=== PATIENT | female | born 1935 | race Caucasian/White ===

== ENCOUNTER 2016-05-17 09:57 | Outpatient (CLI) | payer MEDICARE, OTHER | END 2016-05-17 09:58 | disposition home or self-care (01) | DX: Z12.31 Encounter for screening mammogram for malignant neoplasm of breast (principal); Z80.3 Family history of malignant neoplasm of breast ==

== ENCOUNTER 2016-05-17 09:59 | Outpatient (CLI) | payer MEDICARE, OTHER | END 2016-05-17 10:00 | disposition home or self-care (01) | DX: M89.9 Disorder of bone, unspecified (principal); Z78.0 Asymptomatic menopausal state ==

== ENCOUNTER 2016-05-19 10:15 | Outpatient (CLI) | END 2016-05-19 10:16 | disposition home or self-care (01) ==

== ENCOUNTER 2016-09-29 11:12 | Outpatient (CLI) | payer MEDICARE, OTHER | END 2016-09-29 11:13 | disposition home or self-care (01) | DX: R56.9 Unspecified convulsions (principal) ==

== ENCOUNTER 2017-02-02 11:15 | Outpatient (CLI) | payer MEDICARE, OTHER | END 2017-02-02 11:16 | disposition home or self-care (01) | LOC: LAB.WCP 11:15 | PROVIDERS: ATTEND Family Medicine | DX: N39.0 Urinary tract infection, site not specified (principal) | CPT/HCPCS: 87086 ==

== ENCOUNTER 2017-02-07 10:51 | Outpatient (CLI) | payer MEDICARE, OTHER ==
[2017-02-07 12:52] LABS: BASOPHILS # (AUTO) 0.1 10^3/uL (0.0-0.1); BASOPHILS % (AUTO) 0.5 %; EOSINOPHILS # (AUTO) 0.5 10^3/uL (0.0-0.7); EOSINOPHILS % (AUTO) 3.6 %; HCT - HEMATOCRIT 37.3 % (37.0-47.0); HGB - HEMOGLOBIN 12.2 g/dL (12.0-16.0); LYMPHOCYTES # (AUTO) 1.5 10^3/uL (1.5-3.5); LYMPHOCYTES % (AUTO) 11.9 %; MEAN CORPUSCULAR HEMOGLOBIN 28.1 pg (27.0-31.0); MEAN CORPUSCULAR HGB CONC 32.6 g/dL (32.0-36.0); MEAN CORPUSCULAR VOLUME 86.1 fL (81.0-99.0); MEAN PLATELET VOLUME 7.3 fL (7.9-10.8); MONOCYTES # (AUTO) 1.5 10^3/uL (0.0-1.0); MONOCYTES % (AUTO) 11.6 %; NEUTROPHILS # (AUTO) 9.2 10^3/uL (1.5-6.6); NEUTROPHILS % (AUTO) 72.4 %; RED BLOOD COUNT 4.33 10^6/uL (4.20-5.40); RED CELL DISTRIBUTION WIDTH 14.7 % (12.0-15.0); UNCORRECTED WHITE BLOOD COUNT 12.7 x10^3/uL; WHITE BLOOD COUNT 12.7 x10^3/uL (4.8-10.8)
[2017-02-07 13:10] LABS: CHOL/HDL RATIO 3.1 (<4.4); CHOLESTEROL 143 mg/dL; HDL CHOLESTEROL 46 mg/dL; LDL/HDL RATIO 1.7 (<4.4); TRIGLYCERIDES 95 mg/dL; VLDL CHOLESTEROL 19 mg/dL
== END 2017-02-07 10:52 | disposition home or self-care (01) ==
LOC: LAB.WCP 10:51
PROVIDERS: ATTEND Family Medicine
DX: E78.5 Hyperlipidemia, unspecified (principal); M79.1 Myalgia
CPT/HCPCS: 36415; 80061; 85025; 86140

== ENCOUNTER 2017-02-11 09:00 | Outpatient (CLI) | payer MEDICARE, OTHER | END 2017-02-11 09:01 | disposition critical access hospital (66) | LOC: EMS 09:00 | PROVIDERS: ATTEND Surgery | DX: R09.89 Other specified symptoms and signs involving the circulatory and respiratory systems (principal); R07.0 Pain in throat | CPT/HCPCS: A0425; A0429 ==

== ENCOUNTER 2017-02-11 09:19 | Emergency (ER) | payer MEDICARE, OTHER ==
--- NOTE | 2017-02-11 10:12 | XRAY Preliminary Report ---
Exam: XR Chest 2 View PA/LAT IMPRESSION: Emphysema and chronic interstitial lung disease. Mild superimposed edema not excluded. [facility] SITE ID: [id number]
--- NOTE | 2017-02-11 10:14 | XRAY Report ---
EXAM: CHEST RADIOGRAPHY EXAM DATE: 02/11/2017 09:48 AM. CLINICAL HISTORY: Chest Pain. COMPARISON: 02/11/2017. TECHNIQUE: 2 views. FINDINGS: Lungs/Pleura: The markings are again noted to be diffusely increased consistent with chronic fibrosis . Mild superimposed edema not excluded. No lola consolidative process or pleural effusion. Mediastinum: Stable heart and mediastinal contours. Other: Mild degenerative changes in the thoracic spine. IMPRESSION: Emphysema and chronic interstitial lung disease. Mild superimposed edema not excluded. [facility] Referring Provider Line: [phone] SITE ID: [id number]
[2017-02-11 10:19] LABS: BASOPHILS % (AUTO) 0.3 %; EOSINOPHILS % (AUTO) 0.3 %; HCT - HEMATOCRIT 35.2 % (37.0-47.0); HGB - HEMOGLOBIN 11.4 g/dL (12.0-16.0); LYMPHOCYTES # (AUTO) 0.7 10^3/uL (1.5-3.5); LYMPHOCYTES % (AUTO) 4.6 %; MEAN CORPUSCULAR HEMOGLOBIN 27.9 pg (27.0-31.0); MEAN CORPUSCULAR HGB CONC 32.5 g/dL (32.0-36.0); MEAN CORPUSCULAR VOLUME 85.8 fL (81.0-99.0); MEAN PLATELET VOLUME 6.7 fL (7.9-10.8); MONOCYTES # (AUTO) 1.6 10^3/uL (0.0-1.0); MONOCYTES % (AUTO) 9.6 %; NEUTROPHILS % (AUTO) 85.2 %; RED CELL DISTRIBUTION WIDTH 14.6 % (12.0-15.0); UNCORRECTED WHITE BLOOD COUNT 16.4 x10^3/uL; WHITE BLOOD COUNT 16.4 x10^3/uL (4.8-10.8)
[2017-02-11 10:33] LABS: BILIRUBIN,TOTAL 0.8 mg/dL (0.2-1.0); CALCIUM 8.8 mg/dL (8.5-10.3); CREATININE 0.8 mg/dL (0.4-1.0); POTASSIUM 4.1 mmol/L (3.5-5.0); TOTAL PROTEIN 6.5 g/dL (6.7-8.2)
[2017-02-11] MEDS ORDERED: DEXAMETHASONE 10 MG/ML VIAL PO STA (11:21)
[2017-02-11] MEDS ORDERED: IPRATROPIUM/ALBUTEROL 3 ML NEB INH STA (11:21)
[2017-02-11] MEDS ORDERED: CHERRY SYRUP 10 ML UDC PO ONE (12:04)
[2017-02-11] MEDS ORDERED: DEXAMETHASONE 10 MG/ML VIAL ONE (12:04)
[2017-02-11] MEDS ORDERED: SODIUM CHLORIDE 0.9% 1,000 ML IV ONE ×2 (13:00→13:23)
[2017-02-11] MEDS ORDERED: AZITHROMYCIN INJ 500 MG in SODIUM CHLORIDE 0.9% 250 ML IV STA (13:46)
--- NOTE | 2017-02-11 14:25 | ED Physician Documentation ---
History of Present Illness - Stated complaint Stated Complaint: CP - Chief complaint Chief Complaint: Cardiac - History obtained from History obtained from: Patient, EMS - History of Present Illness Timing: Last night Pain level max: 3 Pain level now: 3 Improved by: home pain medications helped Worsened by: movement, palpation - Additonal information Additional information: Patient is an 81-year-old female who presents to the emergency department with chest pain and neck pain since last night. This started when she was asleep, she thinks approximately 2 AM and has been consistent since that time. Became better when she took her morning pain medication. Did not seem to change with nitroglycerin and aspirin with EMS. No history of cardiac issues in the past. States that she does often get neck pain similar to this that resolves with her pain medication. She denies any fevers. Denies any coughing. States that she does use oxygen at home. Denies any recent illness. Review of Systems Ten Systems: 10 systems reviewed and negative Constitutional: denies: Fever, Chills Ears: denies: Ear pain Nose: denies: Rhinorrhea / runny nose, Congestion Throat: reports: Sore throat (mild) Cardiac: denies: Chest pain / pressure Respiratory: reports: Dyspnea (mild, normally on 2L home O2) GI: denies: Abdominal Pain, Nausea, Vomiting, Diarrhea : denies: Dysuria Skin: denies: Rash Musculoskeletal: denies: Neck pain, Back pain Neurologic: denies: Focal weakness, Numbness, Confused, Altered mental status, Headache, Head injury, LOC PD PAST MEDICAL HISTORY - Past Medical History Cardiovascular: None Respiratory: COPD, Pneumonia Neuro: None, Head injury Endocrine/Autoimmune: None GI: None 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 HEENT: Glaucoma Psych: Depression, Anxiety Musculoskeletal: Chronic back pain Derm: None - Past Surgical History Past Surgical History: Yes General: Appendectomy, Colonoscopy Ortho: Knee replacement, 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: Hysterectomy HEENT: Cataracts Derm: Skin cancer surgery - Present Medications Home Medications: Ambulatory Orders Medication Instructions Recorded Confirmed Esomeprazole [NexIUM] 40 mg PO DAILY 09/09/13 06/21/14 Levothyroxine Sodium [Synthroid] 100 mcg PO DAILY 09/09/13 06/21/14 Oxycodone HCl/Acetaminophen 1 each PO BID 09/09/13 06/21/14 [Oxycodone-Acetaminophen 5-325] Aspirin 81 mg ORAL DAILY 03/26/14 06/21/14 Budesonide/Formoterol Fumarate 2 puffs BID 06/21/14 06/21/14 [Symbicort 80-4.5 Mcg Inhaler] Cholecalciferol (Vitamin D3) 1 tab DAILY 06/21/14 06/21/14 [Vitamin D-3] Cyclobenzaprine [Flexeril] 10 mg PO TID PRN #20 tablet 06/21/14 DULoxetine [Cymbalta] 60 mg ORAL QPM 06/21/14 06/21/14 Latanoprost 0.005% Ophth Drops 1 drop QPM 06/21/14 06/21/14 [Xalatan Ophth Drops] Oxycodone HCl/Acetaminophen 1 each PO Q6H PRN #15 tablet 06/21/14 [Percocet 5-325 mg Tablet] Phenytoin [Dilantin] 200 ng ORAL QPM 06/21/14 06/21/14 Cephalexin [Keflex] 500 mg PO QID 7 Days capsule 01/14/16 Azithromycin [Zithromax] 250 mg PO DAILY #4 tablet 02/11/17 - Allergies Allergies/Adverse Reactions: Allergies Allergy/AdvReac Type Severity Reaction Status Date / Time oxaprozin [From Daypro] Allergy Mild Nausea Verified 06/21/14 14:09 tetracycline [Tetracycline] Allergy Mild Rash Verified 06/21/14 14:09 venom-honey bee Allergy Unknown Verified 06/21/14 14:09 [bee venom (honey bee)] bupropion HCl * AdvReac Unknown Verified 06/21/14 14:09 [From Wellbutrin] - Social History Does the pt smoke?: No Smoking Status: Never smoker Does the pt drink ETOH?: No Does the pt have substance abuse?: No - Immunizations Immunizations are current?: Yes - POLST Patient has POLST: Yes PD ED PE NORMAL - Vitals Vital signs reviewed: Yes - General General: Alert and oriented X 3, No acute distress, Well developed/nourished - HEENT HEENT: PERRL, Ears normal, Moist mucous membranes, Pharynx benign, Dentition benign - Neck Neck: Supple, no meningeal sign, No bony TTP, No adenopathy, No JVD, No bruit - Cardiac Cardiac: RRR, Strong equal pulses - Respiratory Respiratory: No respiratory distress, Other (mild rhonchi B) - Abdomen Abdomen: Soft, Non tender, Non distended - Back Back: No spinal TTP - Derm Derm: Warm and dry - Extremities Extremities: No deformity, Normal ROM s pain, No edema - Neuro Neuro: Alert and oriented X 3, 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, No motor deficit, No sensory deficit, Normal speech - Psych Psych: Normal mood, Normal affect Results - Vitals Vitals: Vital Signs - 24 hr 02/11/17 02/11/17 02/11/17 09:22 09:59 11:54 Temperature 37.1 C 36.5 C 36.8 C Heart Rate 90 77 70 Respiratory 16 16 18 Rate Blood Pressure 109/61 104/50 L 92/45 L O2 Saturation 100 95 95 02/11/17 02/11/17 02/11/17 11:56 12:54 13:37 Temperature Heart Rate 64 96 66 Respiratory 14 16 Rate Blood Pressure 88/50 L 94/49 L O2 Saturation 95 99 02/11/17 02/11/17 02/11/17 13:39 14:20 14:50 Temperature 36.9 C 36.6 C Heart Rate 65 61 70 Respiratory 15 16 Rate Blood Pressure 94/49 L 101/50 L 93/53 L O2 Saturation 97 97 98 02/11/17 02/11/17 02/11/17 15:14 15:26 15:40 Temperature Heart Rate 68 66 68 Respiratory Rate Blood Pressure 93/66 77/55 L 97/49 L O2 Saturation 02/11/17 02/11/17 16:26 16:33 Temperature 36.9 C Heart Rate 62 67 Respiratory 16 Rate Blood Pressure 89/61 L 99/58 L O2 Saturation 100 97 Oxygen O2 Source [With Activity] Room air O2 Source [Without Activity] Nasal cannula O2 Source Nasal cannula Oxygen Flow Rate 2 - EKG (time done) 0925 Rate: Rate (enter#) (75) Rhythm: NSR [place]: Normal Intervals: Normal CT QRS: Normal Ischemia: Normal ST segments - Labs Labs: Laboratory Tests 02/11/17 02/11/17 02/11/17 10:05 10:10 10:10 WBC 16.4 H RBC 4.10 L Hgb 11.4 L Hct 35.2 L MCV 85.8 MCH 27.9 MCHC 32.5 RDW 14.6 Plt Count 302 MPV 6.7 L Neut # 14.0 H Lymph # 0.7 L [place] # 1.6 H Eos # 0.0 Baso # 0.0 Absolute Nucleated RBC 0.00 Nucleated RBC % 0.0 Sodium 135 Potassium 4.1 Chloride 96 L Carbon Dioxide 29 Anion Gap 10.0 BUN 14 Creatinine 0.8 Estimated GFR (MDRD) 69 L Glucose 122 H Lactic Acid Calcium 8.8 Total Bilirubin 0.8 AST 23 ALT 13 Alkaline Phosphatase 61 Troponin I < 0.04 Total Protein 6.5 L Albumin 3.2 Globulin 3.3 Albumin/Globulin Ratio 1.0 Lipase 19 L 02/11/17 02/11/17 02/11/17 10:10 12:30 14:03 WBC RBC Hgb Hct MCV MCH MCHC RDW Plt Count MPV Neut # Lymph # [place] # Eos # Baso # Absolute Nucleated RBC Nucleated RBC % Sodium Potassium Chloride Carbon Dioxide Anion Gap BUN Creatinine Estimated GFR (MDRD) Glucose Lactic Acid 1.0 Calcium Total Bilirubin AST ALT Alkaline Phosphatase Troponin I < 0.04 < 0.04 Total Protein Albumin Globulin Albumin/Globulin Ratio Lipase - Rads (name of study) cxr Radiology: Prelim report reviewed, EMP read contemporaneously, See rad report ( Emphysema and chronic lung disease. mild edema not excluded) ctpa Radiology: Prelim report reviewed, EMP read contemporaneously, See rad report ( No evidence of acute pulmonary embolus. 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 New very small left pleural effusion. New groundglass opacities consistent with pneumonitis versus edema.) PD MEDICAL DECISION MAKING - ED course Complexity details: reviewed old records, reviewed results, re-evaluated patient , considered differential (No ST elevation [place], no aortic dissection, no PE, no tension pneumothorax, no aortic aneurysm), d/w patient ED course: Patient is an 81-year-old female who presents to the emergency department with atypical chest pain and neck pain. Symptoms resolved in the emergency department. She felt better after dexamethasone and breathing treatments. Started on azithromycin for possible pneumonitis. She became hypotensive in the emergency department, but fully asymptomatic. Unclear etiology of her hypotension. Improved with IV fluids. She states that she has not been eating or drinking much over the past week. She does state that she is normally hypotensive, systolic blood pressures in the low 100s. No fevers here. Normal lactate. No evidence of aortic dissection. Ambulating without difficulty. Does not feel lightheaded or dizzy. Will place on azithromycin for home and follow-up with her PCP closely. Patient is tolerating p.o. without difficulty in the emergency department. Patient counseled regarding signs and symptoms for which I believe and urgent re-evaluation would be necessary. Patient with good understanding of and agreement to plan and is comfortable going home at this time This document was made in part using voice recognition software. While efforts are made to proofread this document, sound alike and grammatical errors may occur. Departure - Departure Disposition: Home, Self Care Clinical Impression: Dehydration, Pneumonitis Chest pain Qualifiers: Chest pain type: unspecified Qualified Code(s): R07.9 - Chest pain, unspecified Hypotension Qualifiers: Hypotension type: unspecified hypotension type Qualified Code(s): I95.9 - Hypotension, unspecified Condition: Good Instructions: ED Chest Pain Atypical Unkn Cause Follow-Up: Garrison Patiño DO [Primary Care Provider] - Within 1 week Prescriptions: Azithromycin [Zithromax] 250 mg PO DAILY #4 tablet Comments: Take all anitbiotics until gone. Return if you worsen. Drink plenty of fluids at home. Discharge Date/Time: 02/11/17 17:29
[2017-02-11] MEDS ORDERED: IOPAMIDOL-300 100 ML VIAL ONE (15:34)
[2017-02-11] MEDS ORDERED: IOPAMIDOL-300 100 ML VIAL IVP ONE (15:58)
--- NOTE | 2017-02-11 16:34 | CT Preliminary Report ---
Exam: CT Chest Angio (PE) IMPRESSION: 1. Negative for acute pulmonary embolism. 2. Moderate cystic lung disease with features of emphysema and areas of parenchymal scarring. 3. New very small left pleural effusion. 4. New basilar dependent ground glass opacities. Differential including dependent mild interstitial e christie or pneumonitis. [facility] SITE ID: [id number]
--- NOTE | 2017-02-11 16:36 | CT Report ---
EXAM: CT ANGIOGRAM CHEST EXAM DATE: 02/11/2017 04:15 PM. CLINICAL HISTORY: Hypotension, chest pain. COMPARISON: 01/15/2015. TECHNIQUE: Routine helical imaging was performed through the chest in the pulmonary arterial phase. I V Contrast: 80 cc Isovue 300 IV. Reconstructions: Coronal 3-D MIP reconstructions.Sagittal and yoon l. In accordance with CT protocol optimization, one or more of the following dose reduction techniques w ere utilized for this exam: automated exposure control, adjustment of mA and/or KV based on patient s ize, or use of iterative reconstructive technique. FINDINGS: Pulmonary Arteries: Diagnostic quality: Adequate through the segmental arteries. Negative for pulmonary embolism. Lungs/Pleura: There is a very small left pleural effusion. There is moderate cystic lung disease with findings of centrilobular and paraseptal emphysema. There are subpleural linear opacities which are greatest in the right upper lobe consistent with scarring or fibrosis. There is lower lobe ground gla ss density. The trachea is patent and normal in caliber. Negative for pneumothorax. Mediastinum: There are borderline size mediastinal lymph nodes. Heart size within normal limits. Ther e is a moderate-sized hiatal hernia. Thoracic Aorta: There is atherosclerotic calcification without aneurysmal dissection. There are moder ate coronary artery calcifications. Upper Abdomen: Unremarkable. Other: None. IMPRESSION: 1. Negative for acute pulmonary embolism. 2. Moderate cystic lung disease with features of emphysema and areas of parenchymal scarring. 3. New very small left pleural effusion. 4. New basilar dependent ground glass opacities. Differential including dependent mild interstitial e christie or pneumonitis. [facility] Referring Provider Line: [phone] SITE ID: [id number]
[2017-02-11 19:15] VITALS: BP 99/58
== END 2017-02-11 17:29 | disposition home or self-care (01) ==
LOC: EDUNIT# → ED 09:19
DX: E86.0 Dehydration (principal); J18.9 Pneumonia, unspecified organism; R07.9 Chest pain, unspecified; I95.9 Hypotension, unspecified; Z96.659 Presence of unspecified artificial knee joint
CPT/HCPCS: 36415; 71020; 71275; 80053; 83605; 83690; 84484; 85025; 94664; 96361; 96365; 99284; 99285; A9270; J7620; Q9967

== ENCOUNTER 2017-03-07 11:21 | Outpatient (CLI) | payer MEDICARE, OTHER | END 2017-03-07 11:22 | disposition home or self-care (01) | LOC: DI 11:21 | PROVIDERS: ATTEND Family Medicine | DX: R01.1 Cardiac murmur, unspecified (principal); I51.7 Cardiomegaly; Z87.891 Personal history of nicotine dependence | CPT/HCPCS: 93306 ==

== ENCOUNTER 2017-04-14 10:50 | Outpatient (CLI) | payer MEDICARE, OTHER ==
--- NOTE | 2017-04-14 13:59 | CT Report ---
CT OF THE CHEST WITHOUT CONTRAST: 04/14/2017 CLINICAL INDICATION: Enlarged lymph nodes. COMPARISON: CT of chest of 02/11/2017, two view chest of 02/23/2017. TECHNIQUE: Axial CT images of the chest were obtained without intravenous contrast. FINDINGS: The heart and great vessels demonstrate atherosclerotic disease. There is no hilar or medi astinal lymphadenopathy identified. The lungs demonstrate extensive emphysema and peripheral fibrosis . No focal consolidation, effusion, or pneumothorax is present. Limited evaluation of upper abdominal structures demonstrates cholelithiasis. The adrenal glands appear unremarkable. A moderate hiatal he rnia is present. The osseous structures demonstrate degenerative changes. IMPRESSION: EMPHYSEMA AND FIBROSIS. NO EVIDENCE OF ADENOPATHY. MODERATE HIATAL HERNIA. In accordance with CT protocol optimization, one or more of the following dose reduction techniques w ere utilized for this exam: automated exposure control, adjustment of mA and/or KV based on patient size, or use of iterative reconstructive technique. JOB #: [id number] EXT JOB #:[id number]
== END 2017-04-14 10:51 | disposition home or self-care (01) ==
LOC: DI 10:50
PROVIDERS: ATTEND Internal Medicine Critical Care Medicine
DX: J43.9 Emphysema, unspecified (principal); J84.10 Pulmonary fibrosis, unspecified; J44.9 Chronic obstructive pulmonary disease, unspecified
CPT/HCPCS: 71250

== ENCOUNTER 2017-08-01 08:00 | Outpatient (CLI) | payer MEDICARE, OTHER ==
[2017-08-01 19:19] LABS: BASOPHILS # (AUTO) 0.1 10^3/uL (0.0-0.1); BASOPHILS % (AUTO) 0.7 %; EOSINOPHILS # (AUTO) 0.6 10^3/uL (0.0-0.7); EOSINOPHILS % (AUTO) 6.6 %; HGB - HEMOGLOBIN 12.1 g/dL (12.0-16.0); MEAN CORPUSCULAR HGB CONC 32.7 g/dL (32.0-36.0); MEAN CORPUSCULAR VOLUME 85.8 fL (81.0-99.0); MEAN PLATELET VOLUME 8.1 fL (7.9-10.8); MONOCYTES # (AUTO) 0.9 10^3/uL (0.0-1.0); MONOCYTES % (AUTO) 10.4 %; NEUTROPHILS # (AUTO) 5.1 10^3/uL (1.5-6.6); NEUTROPHILS % (AUTO) 59.3 %; PLT - PLATELET COUNT 307 10^3/uL (130-450); RED BLOOD COUNT 4.33 10^6/uL (4.20-5.40); RED CELL DISTRIBUTION WIDTH 16.1 % (12.0-15.0); WHITE BLOOD COUNT 8.6 x10^3/uL (4.8-10.8)
[2017-08-01 19:36] LABS: ALBUMIN/GLOBULIN RATIO 1.4 (1.0-2.2); ALKALINE PHOSPHATASE 71 IU/L (42-121); ALT ALANINE AMINOTRANSFERASE 18 IU/L (10-60); AST ASPARTATE AMINOTRANSFERASE 30 IU/L (10-42); BILIRUBIN,TOTAL 0.5 mg/dL (0.2-1.0); BUN - BLOOD UREA NITROGEN 20 mg/dL (6-20); CALCIUM 9.5 mg/dL (8.5-10.3); CARBON DIOXIDE - CO2 29 mmol/L (21-32); CHLORIDE 99 mmol/L (101-111); CHOL/HDL RATIO 2.7 (<4.4); CHOLESTEROL 174 mg/dL; CREATININE 0.8 mg/dL (0.4-1.0); GFR - MDRD 69 (>89); GLUCOSE 88 mg/dL (70-100); HDL CHOLESTEROL 65 mg/dL; LDL CHOLESTEROL,CALCULATED 94 mg/dL; LDL/HDL RATIO 1.4 (<4.4); SODIUM 137 mmol/L (135-145); TOTAL PROTEIN 6.9 g/dL (6.7-8.2); VLDL CHOLESTEROL 15 mg/dL
== END 2017-08-01 08:01 | disposition home or self-care (01) ==
LOC: LAB.WCP 08:00
PROVIDERS: ATTEND Family Medicine
DX: E78.5 Hyperlipidemia, unspecified (principal); D64.9 Anemia, unspecified; R56.1 Post traumatic seizures
CPT/HCPCS: 36415; 80053; 80061; 83721; 84443; 85025

== ENCOUNTER 2018-01-16 13:00 | Outpatient (CLI) | payer MEDICARE, OTHER ==
[2018-01-16 19:02] LABS: BASOPHILS % (AUTO) 0.2 %; EOSINOPHILS # (AUTO) 0.3 10^3/uL (0.0-0.7); HGB - HEMOGLOBIN 11.2 g/dL (12.0-16.0); LYMPHOCYTES # (AUTO) 1.2 10^3/uL (1.5-3.5); LYMPHOCYTES % (AUTO) 7.5 %; MEAN CORPUSCULAR HEMOGLOBIN 26.9 pg (27.0-31.0); MEAN CORPUSCULAR HGB CONC 32.3 g/dL (32.0-36.0); MEAN CORPUSCULAR VOLUME 83.2 fL (81.0-99.0); MEAN PLATELET VOLUME 6.4 fL (7.9-10.8); MONOCYTES # (AUTO) 1.2 10^3/uL (0.0-1.0); MONOCYTES % (AUTO) 7.8 %; NEUTROPHILS # (AUTO) 12.7 10^3/uL (1.5-6.6); NEUTROPHILS % (AUTO) 82.5 %; PLT - PLATELET COUNT 513 10^3/uL (130-450); RED BLOOD COUNT 4.15 10^6/uL (4.20-5.40); RED CELL DISTRIBUTION WIDTH 16.1 % (12.0-15.0); WHITE BLOOD COUNT 15.5 x10^3/uL (4.8-10.8)
[2018-01-16 19:23] LABS: ALBUMIN 3.3 g/dL (3.2-5.5); ALBUMIN/GLOBULIN RATIO 0.8 (1.0-2.2); BILIRUBIN,TOTAL 0.7 mg/dL (0.2-1.0); CALCIUM 9.1 mg/dL (8.5-10.3); CREATININE 2.4 mg/dL (0.4-1.0); TOTAL PROTEIN 7.3 g/dL (6.7-8.2)
== END 2018-01-16 13:01 | disposition home or self-care (01) ==
LOC: LAB.WCP 13:00
PROVIDERS: ATTEND Family Medicine
DX: J44.9 Chronic obstructive pulmonary disease, unspecified (principal); R06.02 Shortness of breath; N39.0 Urinary tract infection, site not specified
CPT/HCPCS: 36415; 80053; 83880; 85025

== ENCOUNTER 2018-01-17 10:44 | Inpatient (IN) | payer MEDICARE, OTHER ==
[2018-01-17 12:25] LABS: BILIRUBIN,URINE NEGATIVE (NEGATIVE); GLUCOSE, URINE (UA) NEGATIVE (NEGATIVE); KETONES,URINE (UA) NEGATIVE (NEGATIVE); LEUKOCYTE ESTERASE, URINE NEGATIVE (NEGATIVE); NITRITE,URINE NEGATIVE (NEGATIVE); OCCULT BLOOD,URINE LARGE (NEGATIVE); PH,URINE 6.5 PH (5.0-7.5); PROTEIN,URINE 30 mg/dL (NEGATIVE); UROBILINOGEN,URINE 0.2 (NORMAL) E.U./dL (NORMAL)
[2018-01-17 12:27] LABS: CLARITY,URINE CLEAR (CLEAR)
[2018-01-17 12:37] LABS: BASOPHILS # (AUTO) 0.1 10^3/uL (0.0-0.1); BASOPHILS % (AUTO) 0.3 %; EOSINOPHILS # (AUTO) 0.1 10^3/uL (0.0-0.7); EOSINOPHILS % (AUTO) 0.5 %; HGB - HEMOGLOBIN 10.4 g/dL (12.0-16.0); LYMPHOCYTES # (AUTO) 1.7 10^3/uL (1.5-3.5); LYMPHOCYTES % (AUTO) 9.5 %; MEAN CORPUSCULAR HEMOGLOBIN 26.9 pg (27.0-31.0); MEAN CORPUSCULAR HGB CONC 32.7 g/dL (32.0-36.0); MEAN CORPUSCULAR VOLUME 82.2 fL (81.0-99.0); MEAN PLATELET VOLUME 6.3 fL (7.9-10.8); MONOCYTES # (AUTO) 1.7 10^3/uL (0.0-1.0); MONOCYTES % (AUTO) 9.1 %; NEUTROPHILS # (AUTO) 14.8 10^3/uL (1.5-6.6); NEUTROPHILS % (AUTO) 80.6 %; PLT - PLATELET COUNT 522 10^3/uL (130-450); RED BLOOD COUNT 3.85 10^6/uL (4.20-5.40); RED CELL DISTRIBUTION WIDTH 15.9 % (12.0-15.0); WHITE BLOOD COUNT 18.4 x10^3/uL (4.8-10.8)
[2018-01-17] MEDS ORDERED: SODIUM CHLORIDE 0.9% 1,000 ML IV ONE ×2 (12:37)
--- NOTE | 2018-01-17 12:41 | ED Physician Documentation ---
History of Present Illness - Stated complaint Stated Complaint: WEAKNESS - Chief complaint Chief Complaint: General - History obtained from History obtained from: Patient - History of Present Illness Timing: Unknown Pain level max: 0 Pain level now: 0 Improved by: nothing Worsened by: nothing - Additonal information Additional information: Patient is an 82-year-old female who tells me that she does not know why she is here that her doctor sent her here because she thinks that 1 of her tests was low. Patient has no current complaints. She states that her doctor gave her "a shot of prednisone and an antibiotic". 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 HEENT: Glaucoma Psych: Depression, Anxiety Musculoskeletal: Chronic back pain Derm: None - Past Surgical History Past Surgical History: Yes General: Appendectomy, Colonoscopy Ortho: Knee replacement, 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 HEENT: Cataracts Derm: Skin cancer surgery - Present Medications Home Medications: Ambulatory Orders Medication Instructions Recorded Confirmed Levothyroxine Sodium [Synthroid] 100 mcg PO DAILY 09/09/13 01/17/18 Oxycodone HCl/Acetaminophen 1 each PO TID PRN 09/09/13 01/17/18 [Oxycodone-Acetaminophen 5-325] Aspirin 81 mg PO DAILY 03/26/14 01/17/18 Cholecalciferol (Vitamin D3) 1,000 mg PO DAILY 06/21/14 01/17/18 [Vitamin D-3] DULoxetine [Cymbalta] 60 mg ORAL QPM 06/21/14 01/17/18 Latanoprost 0.005% Ophth Drops 1 drop RIGHTEYE QPM 06/21/14 01/17/18 [Xalatan Ophth Drops] Albuterol Sulfate [Proair Hfa 2 puffs INH Q4H PRN 01/17/18 01/17/18 Inhaler] Atorvastatin Calcium 40 mg PO DAILY 01/17/18 01/17/18 Bisacodyl [Dulcolax] 10 mg PO DAILY PRN 01/17/18 01/17/18 Calcium Carbonate/Vitamin D3 1 tab PO BID 01/17/18 01/17/18 [Calcium 600-Vit D3 400 Tablet] Cyanocobalamin (Vitamin B-12) 1,000 mcg SL DAILY 01/17/18 01/17/18 [Vitamin B-12 (1000 mcg sublingual)] Fluticasone 110 Mcg [Flovent] 1 puffs IH BID 01/17/18 01/17/18 Fluticasone/Salmeterol [Advair 1 puffs IH BID 01/17/18 01/17/18 250-50 Diskus] L.acid/L.casei/B.bif/B.filemon/Fos 1 cap PO DAILY 01/17/18 01/17/18 [Probiotic Blend Capsule] Magnesium Oxide [Magnesium] 400 mg PO QPM 01/17/18 01/17/18 Melatonin 5 mg PO DAILY PRN 01/17/18 01/17/18 Multivitamin [Theragran] 1 tab PO DAILY 01/17/18 01/17/18 Omeprazole [Omeprazole] 20 mg PO BID 01/17/18 01/17/18 Oxybutynin Chloride 5 mg PO DAILY 01/17/18 01/17/18 Timolol 0.5% Ophth Drops [Timoptic 1 drops RIGHTEYE BID 01/17/18 01/17/18 0.5% Ophth Drops] Ubidecarenone [Co Q-10] 100 mg PO DAILY 01/17/18 01/17/18 lamoTRIgine [LaMICtal] 100 mg PO BID 01/17/18 01/17/18 - Allergies Allergies/Adverse Reactions: Allergies Allergy/AdvReac Type Severity Reaction Status Date / Time oxaprozin [From Daypro] Allergy Mild Nausea Verified 01/17/18 10:53 tetracycline [Tetracycline] Allergy Mild Rash Verified 01/17/18 10:53 venom-honey bee Allergy Unknown Verified 01/17/18 10:53 [bee venom (honey bee)] bupropion HCl * AdvReac Unknown Verified 01/17/18 10:53 [From Wellbutrin] - Social History Does the pt smoke?: No Smoking Status: Never smoker Does the pt drink ETOH?: No Does the pt have substance abuse?: No - Immunizations Immunizations are current?: Yes - POLST Patient has POLST: Yes PD ED PE NORMAL - Vitals Vital signs reviewed: Yes - General General: Alert and oriented X 3, No acute distress - HEENT HEENT: Moist mucous membranes - Neck Neck: Supple, no meningeal sign - Cardiac Cardiac: RRR, Strong equal pulses - Respiratory Respiratory: Clear bilaterally, Other (wheezing B) - Abdomen Abdomen: Soft, Non tender, Non distended - Back Back: No CVA TTP, No spinal TTP - Derm Derm: Warm and dry, No rash - Extremities Extremities: No edema - Neuro Neuro: Alert and oriented X 3 - Psych Psych: Normal mood, Normal affect Results - Vitals Vitals: Vital Signs - 24 hr 01/17/18 01/17/18 10:47 13:07 Temperature 36.4 C L Heart Rate 75 89 Respiratory 22 20 Rate Blood Pressure 122/59 L O2 Saturation 93 Oxygen O2 Source [With Activity] Room air O2 Source [Without Activity] Nasal cannula O2 Source Room air - Labs Labs: Laboratory Tests 01/17/18 01/17/18 01/17/18 11:55 12:26 12:26 WBC 18.4 H RBC 3.85 L Hgb 10.4 L Hct 31.6 L MCV 82.2 MCH 26.9 L MCHC 32.7 RDW 15.9 H Plt Count 522 H MPV 6.3 L Neut # (Auto) 14.8 H Lymph # (Auto) 1.7 [place] # (Auto) 1.7 H Eos # (Auto) 0.1 Baso # (Auto) 0.1 Absolute Nucleated RBC 0.00 Nucleated RBC % 0.0 Manual Slide Review Indicated RBC Morph Micro Appear 2+ ANISOCYTOSIS Sodium 131 L Potassium 3.7 Chloride 90 L Carbon Dioxide 32 Anion Gap 9.0 BUN 49 H Creatinine 2.2 H Estimated GFR (MDRD) 21 L Glucose 101 H Calcium 8.9 Total Bilirubin 0.5 AST 25 ALT 14 Alkaline Phosphatase 76 Total Protein 7.4 Albumin 3.4 Globulin 4.0 Albumin/Globulin Ratio 0.9 L Lipase 30 Urine Color YELLOW Urine Clarity CLEAR Urine pH 6.5 Ur Specific [place] <=1.005 Urine Protein 30 H Urine Glucose (UA) NEGATIVE Urine Ketones NEGATIVE Urine Occult Blood LARGE H Urine Nitrite NEGATIVE Urine Bilirubin NEGATIVE Urine Urobilinogen 0.2 (NORMAL) Ur Leukocyte Esterase NEGATIVE Urine RBC 0-5 Urine WBC 4-5 Ur Squamous Epith Cells RARE Squamous Urine Bacteria Rare Ur Microscopic Review INDICATED Urine Culture Comments NOT INDICATED PD MEDICAL DECISION MAKING - ED course Complexity details: reviewed old records, reviewed results, re-evaluated patient , considered differential, d/w patient, d/w PMD ED course: chest xray this am shows superimposed pneumonitis in the [place]. Patient is an 82-year-old female presents to the emergency department after being sent in by her primary care provider. Records were obtained from her primary care provider and shows that she received Solu-Medrol as well as Rocephin yesterday for possible COPD flare and pneumonia. Laboratory testing revealed acute renal failure and dehydration. Patient was also hypoxic in the office yesterday, mid to low 80s on her oxygen saturations and improved with supplemental oxygen. Patient was still feeling very weak today. Was given Rocephin and azithromycin as well as Solu-Medrol again. Also given IV fluids. Discussed the case with the hospitalist will admit her for COPD flare, acute renal failure likely secondary to dehydration. This document was made in part using voice recognition software. While efforts are made to proofread this document, sound alike and grammatical errors may occur. - Sepsis Event Vital Signs: Vital Signs - 24 hr 01/17/18 01/17/18 10:47 13:07 Temperature 36.4 C L Heart Rate 75 89 Respiratory 22 20 Rate Blood Pressure 122/59 L O2 Saturation 93 Oxygen O2 Source [With Activity] Room air O2 Source [Without Activity] Nasal cannula O2 Source Room air Departure - Departure Disposition: [facility] DC/Xfer Clinical Impression: Pneumonia, COPD exacerbation Acute renal failure Qualifiers: Acute renal failure type: unspecified Qualified Code(s): N17.9 - Acute kidney failure, unspecified Condition: Stable
[2018-01-17 12:47] LABS: BACTERIA,URINE Rare /HPF (None Seen); RBC,URINE 0-5 /HPF (0-5); SQUAMOUS EPITHELIAL CELL,UR RARE Squamous (<= Few)
[2018-01-17 12:48] LABS: ALBUMIN 3.4 g/dL (3.2-5.5); ALBUMIN/GLOBULIN RATIO 0.9 (1.0-2.2); BILIRUBIN,TOTAL 0.5 mg/dL (0.2-1.0); CREATININE 2.2 mg/dL (0.4-1.0); TOTAL PROTEIN 7.4 g/dL (6.7-8.2)
[2018-01-17] MEDS ORDERED: IPRATROPIUM/ALBUTEROL 3 ML NEB INH STA (12:49)
[2018-01-17] MEDS ORDERED: AZITHROMYCIN INJ 500 MG in SODIUM CHLORIDE 0.9% 250 ML IV STA (12:52)
[2018-01-17] MEDS ORDERED: cefTRIAXone 1 GM VIAL IVP STA (12:52)
[2018-01-17 12:56] LABS: RBC MORPHOLOGY (MULTIPLE) 2+ ANISOCYTOSIS (NORMAL)
[2018-01-17 12:58] LABS: CALCIUM 8.9 mg/dL (8.5-10.3)
[2018-01-17] MEDS ORDERED: methylPREDNISolone SUCCINATE 125 MG/2 ML VIAL IVP STA (13:30)
[2018-01-17] MEDS ORDERED: ONDANSETRON 4 MG/2 ML VIAL IVP PRN (13:30)
[2018-01-17] MEDS ORDERED: ONDANSETRON ODT 4 MG TABLET TL PRN (13:30)
[2018-01-17] MEDS ORDERED: BISACODYL 5 MG TABLET PO PRN (13:34)
[2018-01-17] MEDS ORDERED: ALBUTEROL NEB 2.5 MG/3 ML INH SCH (14:00)
--- NOTE | 2018-01-17 14:40 | HISTORY & PHYSICAL EXAMINATION ---
Chief Complaint - Chief Complaint Chief Complaint: difficult breathing History of Present Illness - History Obtained From History obtained from: pt - History of Present Illness HPI Comment/Other: Ms. Huynh is 82-year-old female with a PMH significance for recurrent pneumonia, longstanding COPD, glaucoma, depression/anxiety, chronic back pain, hypothyroidism who present ER for complaint of difficult breath. Pt report his doctor asked her present ER because of "a abnormal number". Pt report she became more and more difficult to breath otherwise she feels ok. She state she become more fatigue and shortness of breath when she walk a few step with her walkers. She report she had multiple times of pneumonia in the past. She used to be cigarette smoker for quit long time. She denies fever, chill, chest pain , headache, abdominal pain. 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 she has one adopted daughter living at [place] Living arrangement: At home Living Situation: Alone Social History Notes: pt report she stopped cigarette smoking 5 yrs ago. She denies alcohol and drug issue. - Substance History Use: Uses substance without health or social issues: Tobacco - POLST POLST Status: DNR Meds/Allgy - Home Medications Home Medications: Ambulatory Orders Medication Instructions Recorded Confirmed Levothyroxine Sodium [Synthroid] 100 mcg PO DAILY 09/09/13 01/17/18 Oxycodone HCl/Acetaminophen 1 each PO TID PRN 09/09/13 01/17/18 [Oxycodone-Acetaminophen 5-325] Aspirin 81 mg PO DAILY 03/26/14 01/17/18 Cholecalciferol (Vitamin D3) 1,000 mg PO DAILY 06/21/14 01/17/18 [Vitamin D-3] DULoxetine [Cymbalta] 60 mg ORAL QPM 06/21/14 01/17/18 Latanoprost 0.005% Ophth Drops 1 drop RIGHTEYE QPM 06/21/14 01/17/18 [Xalatan Ophth Drops] Albuterol Sulfate [Proair Hfa 2 puffs INH Q4H PRN 01/17/18 01/17/18 Inhaler] Atorvastatin Calcium 40 mg PO DAILY 01/17/18 01/17/18 Bisacodyl [Dulcolax] 10 mg PO DAILY PRN 01/17/18 01/17/18 Calcium Carbonate/Vitamin D3 1 tab PO BID 01/17/18 01/17/18 [Calcium 600-Vit D3 400 Tablet] Cyanocobalamin (Vitamin B-12) 1,000 mcg SL DAILY 01/17/18 01/17/18 [Vitamin B-12 (1000 mcg sublingual)] Fluticasone 110 Mcg [Flovent] 1 puffs IH BID 01/17/18 01/17/18 Fluticasone/Salmeterol [Advair 1 puffs IH BID 01/17/18 01/17/18 250-50 Diskus] L.acid/L.casei/B.bif/B.filemon/Fos 1 cap PO DAILY 01/17/18 01/17/18 [Probiotic Blend Capsule] Magnesium Oxide [Magnesium] 400 mg PO QPM 01/17/18 01/17/18 Melatonin 5 mg PO DAILY PRN 01/17/18 01/17/18 Multivitamin [Theragran] 1 tab PO DAILY 01/17/18 01/17/18 Omeprazole [Omeprazole] 20 mg PO BID 01/17/18 01/17/18 Oxybutynin Chloride 5 mg PO DAILY 01/17/18 01/17/18 Timolol 0.5% Ophth Drops [Timoptic 1 drops RIGHTEYE BID 01/17/18 01/17/18 0.5% Ophth Drops] Ubidecarenone [Co Q-10] 100 mg PO DAILY 01/17/18 01/17/18 lamoTRIgine [LaMICtal] 100 mg PO BID 01/17/18 01/17/18 - Allergies Allergies/Adverse Reactions: Allergies Allergy/AdvReac Type Severity Reaction Status Date / Time oxaprozin [From Daypro] Allergy Mild Nausea Verified 01/17/18 10:53 tetracycline [Tetracycline] Allergy Mild Rash Verified 01/17/18 10:53 venom-honey bee Allergy Unknown Verified 01/17/18 10:53 [bee venom (honey bee)] bupropion HCl * AdvReac Unknown Verified 01/17/18 10:53 [From Wellbutrin] Review of Systems - Constitutional Constitutional: reports: Fatigue. denies: Fever, Chills, Malaise, Weakness, Poor appetite, Diaphoresis, Night sweats - Eyes Eyes: denies: Pain, Irritation, Amaurosis, Blurred vision, Spots in vision, Field loss, Vision loss, Dipolpia - Ears, Nose & Throat Ears, Nose & Throat: denies: Ear pain, Hearing loss, Hearing aids, Tinnitus, Vertigo, Nasal pain, Nasal discharge, Nosebleeds, Nasal obstruction, Nasal congestion, Postnasal drainage, Dentures, Sore throat, Hoarseness, Mouth lesions , Bleeding gums - Cardiovascular Cariovascular: denies: Irregular heart rate, Palpitations, Chest pain, Edema, Lightheadedness, Syncope, Exertional dyspnea, Decr. exercise tolerance - Respiratory Respiratory: reports: Cough, Wheezing, SOB with exertion. denies: Sputum production, Snoring, Hemoptysis, Orthopnea, SOB at rest, Apnea, Stridor - Gastrointestinal Gastrointestinal: denies: Abdominal pain, Abdominal distention, Constipation, Diarrhea, Change in bowel habits, Rectal bleeding, Black stools, Bloody stools, Nausea, Vomiting, Johnnie blood emesis, Coffee grounds emesis, Reflux/heartburn - Genitourinary Genitourinary: denies: Dysuria, Frequency, Urgency, Hematuria, Incontinence, Flank pain, Nocturia, Urethral discharge - Musculoskeletal Musculoskeletal: denies: Muscle pain, Back pain, Muscle aches, Stiffness, Limited range of motion, Muscle weakness, Gout, Joint pain - Integumentary Integumentary: denies: Rash, Pruritis, Lesions, Dryness, Lumps, Acne, Pigment changes, Nail changes - Neurological Neurological: denies: General weakness, Focal weakness, Headache, Dizziness, Numbness, Memory problems, Pre-existing deficit, Abnormal gait, Seizures, Incoordination, Slurred speech - Psychiatric Psychiatric: denies: Depression, Anxiety, Suicidal, Delusions, Hallucinations, Homicidal - Endocrine Endocrine: denies: Polyuria, Polydypsia, Polyphagia, Intolerance to cold - Hematologic/Lymphatic Hematologic/Lymphatic: denies: Anemia, Bruising, Petechiae, Blood clots, Lymphadenopathy, Bleeding tendencies Exam - Vital Signs Vital Signs: Vital Signs x48h Temp Pulse Resp BP Pulse Ox 01/17/18 13:07 89 20 01/17/18 10:47 36.4 C L 75 22 122/59 L 93 - Physical Exam General Appearance: positive: No acute distress, Alert. negative: Lethargic Eyes Bilateral: positive: Normal inspection, PERRL, No lid inflammation, Conjunctivae nml ENT: positive: ENT inspection nml, Pharynx nml, No signs of dehydration. negative: Purulent nasal drainage, Pharyngeal erythema, Oral lesions Neck: positive: Nml inspection, Thyroid nml, No JVD, Trachea midline. negative : Thyromegaly, Lymphadenopathy (R), Lymphadenopathy (L), Stiff neck, Swelling/ bruising, Tracheal deviation Respiratory: positive: Chest non-tender, No respiratory distress, Rhonchi. negative: Wheezes, Rales Cardiovascular: positive: Regular rate & rhythm, Systolic murmur. negative: Irregularly irregular, Extrasystoles, Tachycardia, Bradycardia, JVD present, Diastolic murmur Peripheral Pulses: positive: 2+ Abdomen: positive: Non-tender, No organomegaly, Nml bowel sounds, No distention. negative: Tenderness, Guarding, Rebound Back: positive: Nml inspection. negative: CVA tenderness (R), CVA tenderness (L ) Skin: positive: Color nml, No rash, Warm, Dry. negative: Cyanosis, Diaphoresis , Pallor Extremities: positive: Non-tender, Full ROM, Nml appearance. negative: Calf tenderness, Joint swelling, Bang's sign/cords Neurologic/Psychiatric: positive: Oriented x3, Motor nml, Sensation nml, Mood/ affect nml. negative: Weakness, Sensory loss, Facial droop, Slurred/abnml speech, Depressed mood/affect Conclusion/Plan - Problem List (1) COPD exacerbation Conclusion/Plan: Hx of longstanding COPD, hypoxia, SOB solu-medro Duoneb O2 as needed, RT treatment vital monitor (2) Pneumonia Conclusion/Plan: significant elevated WBC 18, CXR indicate infection or inflammation Rocephin and Azith IVF of NS daily lab monitor (3) Dehydration Conclusion/Plan: pt report she feel dehydration, pt also had significant elevated creatinine Hydration with IVF of NS, precaution of fluid overload. daily lab monitor (4) Hyponatremia Conclusion/Plan: Na is 131, hypovolum and hyponatremia IVF of NS daily lab monitor (5) Hypothyroidism Conclusion/Plan: stable, resume home meds check TSH (6) DVT prophylaxis Conclusion/Plan: SCD and LOvenox (7) Do not intubate, cardiopulmonary resuscitation (CPR)-only code status Conclusion/Plan: pt request DNR - Lab Results Fish Bones: 01/18/18 05:22 01/18/18 05:22 Core Measures - Anticipated LOS I expect patient to be DC'd or transferred within 96 hours.: Yes - DVT/VTE - Prophylaxis VTE/DVT Device ordered at admit?: Yes VTE/DVT Prophylaxis med ordered at admit?: Yes
[2018-01-17] MEDS: methylPREDNISolone SUCCINATE 125 MG/2 ML VIAL IVP SCH ×2 (15:45→20:59)
[2018-01-17] MEDS: PANTOPRAZOLE 40 MG TABLET PO SCH (15:46)
[2018-01-17] MEDS ORDERED: ALBUTEROL NEB 2.5 MG/3 ML INH PRN (16:00)
[2018-01-17] MEDS: IPRATROPIUM/ALBUTEROL 3 ML NEB INH SCH ×2 (16:03→19:54)
[2018-01-17] MEDS: SACCHAROMYCES BOULARDII 250 MG CAPSULE PO SCH (17:11)
[2018-01-17] MEDS: SODIUM CHLORIDE 0.9% 1,000 ML IV SCH (17:12)
[2018-01-17] MEDS: SODIUM CHLORIDE FLUSH 0.9% 10 ML SYRINGE IVP SCH (17:12)
[2018-01-17] MEDS: lamoTRIgine 100 MG TABLET PO SCH (20:59)
[2018-01-17] MEDS: MAGNESIUM OXIDE 400 MG TABLET PO SCH (20:59)
[2018-01-17] MEDS: SODIUM CHLORIDE FLUSH 0.9% 10 ML SYRINGE IVP PRN (20:59)
[2018-01-17] MEDS: DULoxetine 30 MG CAPSULE PO SCH (20:59)
[2018-01-17] MEDS: LATANOPROST 0.005% OPHTH DROPS RIGHTEYE SCH (20:59)
[2018-01-17] MEDS: TIMOLOL 0.5% OPHTH DROPS RIGHTEYE SCH (21:00)
[2018-01-17] MEDS ORDERED: FLUTICASONE HFA 110 MCG INHALER INH SCH (21:00)
[2018-01-17] MEDS: oxyCODONE 5 MG TABLET PO PRN (21:03)
[2018-01-17] MEDS: ACETAMINOPHEN 325 MG TABLET PO PRN (21:04)
[2018-01-18] MEDS: SODIUM CHLORIDE 0.9% 1,000 ML IV SCH ×2 (02:53→14:03)
[2018-01-18] MEDS: SODIUM CHLORIDE FLUSH 0.9% 10 ML SYRINGE IVP SCH ×3 (02:54→16:47)
[2018-01-18 06:18] LABS: BASOPHILS % (AUTO) 0.1 %; HGB - HEMOGLOBIN 9.4 g/dL (12.0-16.0); LYMPHOCYTES # (AUTO) 0.7 10^3/uL (1.5-3.5); LYMPHOCYTES % (AUTO) 7.2 %; MEAN CORPUSCULAR HEMOGLOBIN 27.1 pg (27.0-31.0); MEAN CORPUSCULAR HGB CONC 32.7 g/dL (32.0-36.0); MEAN CORPUSCULAR VOLUME 82.9 fL (81.0-99.0); MEAN PLATELET VOLUME 6.3 fL (7.9-10.8); MONOCYTES # (AUTO) 0.3 10^3/uL (0.0-1.0); MONOCYTES % (AUTO) 2.7 %; NEUTROPHILS # (AUTO) 8.9 10^3/uL (1.5-6.6); PLT - PLATELET COUNT 416 10^3/uL (130-450); RED BLOOD COUNT 3.46 10^6/uL (4.20-5.40); RED CELL DISTRIBUTION WIDTH 16.1 % (12.0-15.0); WHITE BLOOD COUNT 9.8 x10^3/uL (4.8-10.8)
[2018-01-18 06:26] LABS: CALCIUM 8.3 mg/dL (8.5-10.3); CREATININE 1.9 mg/dL (0.4-1.0)
[2018-01-18] MEDS: methylPREDNISolone SUCCINATE 125 MG/2 ML VIAL IVP SCH ×3 (06:56→21:11)
[2018-01-18] MEDS: PANTOPRAZOLE 40 MG TABLET PO SCH (06:56)
[2018-01-18] MEDS: SODIUM CHLORIDE FLUSH 0.9% 10 ML SYRINGE IVP PRN ×2 (06:57→21:11)
[2018-01-18] MEDS: IPRATROPIUM/ALBUTEROL 3 ML NEB INH SCH ×3 (07:43→14:46)
[2018-01-18] MEDS: OXYBUTYNIN 5MG TABLET PO SCH (08:14)
[2018-01-18] MEDS: SACCHAROMYCES BOULARDII 250 MG CAPSULE PO SCH ×2 (08:14→16:49)
[2018-01-18] MEDS: ASPIRIN EC 81 MG TABLET PO SCH (08:14)
[2018-01-18] MEDS: oxyCODONE 5 MG TABLET PO PRN ×2 (08:14→21:10)
[2018-01-18] MEDS: LEVOTHYROXINE 100 MCG TABLET PO SCH (08:15)
[2018-01-18] MEDS: cefTRIAXone 2 GM in SODIUM CHLORIDE 0.9% MINIBAG 100 ML IV SCH (08:15)
[2018-01-18] MEDS: lamoTRIgine 100 MG TABLET PO SCH ×2 (08:15→21:10)
[2018-01-18] MEDS: POLYETHYLENE GLYCOL 3350 17 GM PACKET PO SCH (08:15)
[2018-01-18] MEDS: ATORVASTATIN 40 MG TABLET PO SCH (08:15)
[2018-01-18] MEDS: TIMOLOL 0.5% OPHTH DROPS RIGHTEYE SCH ×2 (08:25→21:10)
[2018-01-18] MEDS ORDERED: SACCHAROMYCES BOULARDII 250 MG CAPSULE PO SCH (09:00)
[2018-01-18] MEDS: AZITHROMYCIN INJ 500 MG in SODIUM CHLORIDE 0.9% 250 ML IV SCH (09:27)
--- NOTE | 2018-01-18 14:32 | PROVIDER PROGRESS NOTE ---
Subjective - Prog Note Date Prog Note Date: 01/18/18 - Subjective Pt reports feeling: Improved Subjective: pt ate her 70-80% breakfast. pt report she feel better today. Pt denies fever, chill, CP. Current Medications - Current Medications Current Medications: Active Medications Acetaminophen (Tylenol) 650 mg PO Q4HR PRN PRN Reason: Pain 1 to 4 Last Admin: 01/17/18 21:04 Dose: 650 mg Aspirin (Ecotrin) 81 mg PO DAILY [facility] Last Admin: 01/18/18 08:14 Dose: 81 mg Atorvastatin Calcium (Lipitor) 40 mg PO DAILY [facility] Last Admin: 01/18/18 08:15 Dose: Not Given Bisacodyl (Dulcolax) 10 mg PO DAILY PRN PRN Reason: Constipation Last Admin: 01/17/18 21:04 Dose: 10 mg Cholecalciferol (Vitamin D3) 1,000 unit PO DAILY [facility] Cyanocobalamin (Vitamin B-12) 1,000 mcg PO DAILY [facility] Duloxetine HCl (Cymbalta) 60 mg PO QPM [facility] Last Admin: 01/17/18 20:59 Dose: 60 mg Enoxaparin Sodium (Lovenox) 30 mg SUBQ DAILY [facility] Azithromycin 500 mg/ Sodium (Chloride) 250 mls @ 250 mls/hr IV DAILY [facility] Last Admin: 01/18/18 09:27 Dose: 250 mls/hr Ceftriaxone Sodium 2 gm/ (Sodium Chloride) 100 mls @ 200 mls/hr IV DAILY [facility] Last Admin: 01/18/18 08:15 Dose: 200 mls/hr Sodium Chloride (Normal Saline 0.9%) 1,000 mls @ 83.333 mls/hr IV .Q12H [facility] Last Admin: 01/18/18 14:03 Dose: 83.333 mls/hr Lamotrigine (Lamictal) 100 mg PO BID [facility] Last Admin: 01/18/18 08:15 Dose: 100 mg Latanoprost (Xalatan Ophth Drops) 1 drops RIGHTEYE QPM [facility] Last Admin: 01/17/18 20:59 Dose: 1 drops Levothyroxine Sodium (Synthroid) 100 mcg PO DAILY [facility] Last Admin: 01/18/18 08:15 Dose: 100 mcg Magnesium Oxide (Mag Ox) 400 mg PO QPM [facility] Last Admin: 09/05/18 20:59 Dose: 400 mg Methylprednisolone Sodium Succinate (Solu-Medrol (125mg Vial)) 80 mg IVP TID [facility] Last Admin: 01/18/18 13:29 Dose: 80 mg Multivitamins (Theragran) 1 tab PO DAILY [facility] Ondansetron HCl (Zofran Inj) 4 mg IVP Q6HR PRN PRN Reason: Nausea / Vomiting Ondansetron HCl (Zofran Odt) 4 mg TL Q6HR PRN PRN Reason: Nausea / Vomiting Oxybutynin Chloride (Ditropan) 5 mg PO DAILY [facility] Last Admin: 01/18/18 08:14 Dose: 5 mg Oxycodone HCl (Roxicodone) 5 mg PO Q4HR PRN PRN Reason: Pain 5 to 7 Last Admin: 01/18/18 08:14 Dose: 5 mg Pantoprazole Sodium (Protonix) 40 mg PO QDAC [facility] Last Admin: 01/18/18 06:56 Dose: 40 mg Melatonin 5 Mg 5 each PO DAILY PRN PRN Reason: Insomnia Polyethylene Glycol (Miralax) 17 gm PO DAILY [facility] Last Admin: 01/18/18 08:15 Dose: 17 gm Saccharomyces Boulardii (Florastor) 250 mg PO BIDWM [facility] Last Admin: 01/18/18 08:14 Dose: 250 mg Sodium Chloride (Normal Saline Flush 0.9%) 10 ml IVP PRN PRN PRN Reason: NEEDED PER PROVIDER ORDERS Last Admin: 01/18/18 06:57 Dose: 10 ml Sodium Chloride (Normal Saline Flush 0.9%) 10 ml IVP 0100,0900,1700 [facility] Last Admin: 01/18/18 08:16 Dose: 10 ml Timolol Maleate (Timoptic 0.5% Ophth Drops) 1 drops RIGHTEYE BID [facility] Last Admin: 01/18/18 08:25 Dose: 1 drops Levothyroxine Sodium [Synthroid] 100 mcg PO DAILY 09/09/13 Oxycodone HCl/Acetaminophen [Oxycodone-Acetaminophen 5-325] 1 each PO TID PRN Aspirin 81 mg PO DAILY 03/26/14 Cholecalciferol (Vitamin D3) [Vitamin D-3] 1,000 mg PO DAILY 06/21/14 DULoxetine [Cymbalta] 60 mg ORAL QPM 06/21/14 Latanoprost 0.005% Ophth Drops [Xalatan Ophth Drops] 1 drop RIGHTEYE QPM Albuterol Sulfate [Proair Hfa Inhaler] 2 puffs INH Q4H PRN 01/17/18 Atorvastatin Calcium 40 mg PO DAILY 01/17/18 Bisacodyl [Dulcolax] 10 mg PO DAILY PRN 01/17/18 Calcium Carbonate/Vitamin D3 [Calcium 600-Vit D3 400 Tablet] 1 tab PO BID Cyanocobalamin (Vitamin B-12) [Vitamin B-12 (1000 mcg sublingual)] 1,000 mcg SL DAILY 01/17/18 Fluticasone 110 Mcg [Flovent] 1 puffs IH BID 01/17/18 Fluticasone/Salmeterol [Advair 250-50 Diskus] 1 puffs IH BID 01/17/18 L.acid/L.casei/B.bif/B.filemon/Fos [Probiotic Blend Capsule] 1 cap PO DAILY Magnesium Oxide [Magnesium] 400 mg PO QPM 01/17/18 Melatonin 5 mg PO DAILY PRN 01/17/18 Multivitamin [Theragran] 1 tab PO DAILY 01/17/18 Omeprazole [Omeprazole] 20 mg PO BID 01/17/18 Oxybutynin Chloride 5 mg PO DAILY 01/17/18 Timolol 0.5% Ophth Drops [Timoptic 0.5% Ophth Drops] 1 drops RIGHTEYE BID Ubidecarenone [Co Q-10] 100 mg PO DAILY 01/17/18 lamoTRIgine [LaMICtal] 100 mg PO BID 01/17/18 Objective - Vital Signs/Intake & Output Reviewed Vital Signs: Yes Vital Signs: Vital Signs x48h Temp Pulse Pulse Resp BP Pulse Ox 01/18/18 10:32 65 20 01/18/18 08:49 36.9 C 82 150/60 H 01/18/18 07:45 55 L 20 01/18/18 07:32 73 18 159/55 H 94 Intake & Output: Intake & Output 01/15/18 01/16/18 01/17/18 01/18/18 23:59 23:59 23:59 23:59 Intake Total 2049 1867.333 Balance 2049 - Objective General Appearance: positive: No acute distress, Alert. negative: Lethargic Eyes Bilateral: positive: Normal inspection, PERRL, No lid inflammation, Conjunctivae nml ENT: positive: ENT inspection nml, Pharynx nml, No signs of dehydration. negative: Purulent nasal drainage, Pharyngeal erythema, Oral lesions Neck: positive: Nml inspection, Thyroid nml, No JVD, Trachea midline. negative : Thyromegaly, Lymphadenopathy (R), Lymphadenopathy (L), Stiff neck, Swelling/ bruising, Tracheal deviation Respiratory: positive: Chest non-tender, No respiratory distress, Rhonchi. negative: Wheezes, Rales Cardiovascular: positive: Regular rate & rhythm, No gallop, Systolic murmur. negative: Irregularly irregular, Extrasystoles, Tachycardia, Bradycardia, JVD present, Diastolic murmur Peripheral Pulses: 2+ Radial (R), 2+ Radial (L), 2+ Dorsalis pedis (R), 2+ Dorsalis pedis (L) Abdomen: positive: Non-tender, No organomegaly, Nml bowel sounds, No distention. negative: Tenderness, Guarding, Rebound Back: positive: Nml inspection. negative: CVA tenderness (R), CVA tenderness (L ) Skin: positive: Color nml, No rash, Warm, Dry. negative: Cyanosis, Diaphoresis , Pallor Extremities: positive: Non-tender, Full ROM, Nml appearance. negative: Calf tenderness, Joint swelling, Bang's sign/cords Neurologic/Psychiatric: positive: Oriented x3, Motor nml, Sensation nml, Mood/ affect nml. negative: Weakness, Sensory loss, Facial droop, Slurred/abnml speech, Depressed mood/affect - Lab Results Fish Bones: 01/18/18 05:22 01/18/18 05:22 Other Labs: Lab Results x24hrs 01/18/18 01/18/18 01/18/18 Range/Units 05:22 05:22 05:22 WBC 9.8 (4.8-10.8) x10^3/uL RBC 3.46 L (4.20-5.40) 10^6/uL Hgb 9.4 L (12.0-16.0) g/dL Hct 28.7 L (37.0-47.0) % MCV 82.9 (81.0-99.0) fL MCH 27.1 (27.0-31.0) pg MCHC 32.7 (32.0-36.0) g/dL RDW 16.1 H (12.0-15.0) % Plt Count 416 (130-450) 10^3/uL MPV 6.3 L (7.9-10.8) fL Neut # (Auto) 8.9 H (1.5-6.6) 10^3/uL Lymph # (Auto) 0.7 L (1.5-3.5) 10^3/uL [place] # (Auto) 0.3 (0.0-1.0) 10^3/uL Eos # (Auto) 0.0 (0.0-0.7) 10^3/uL Baso # (Auto) 0.0 (0.0-0.1) 10^3/uL Absolute Nucleated RBC 0.00 x10^3/uL Nucleated RBC % 0.0 /100WBC Sodium 140 (135-145) mmol/L Potassium 3.5 (3.5-5.0) mmol/L Chloride 100 L (101-111) mmol/L Carbon Dioxide 29 (21-32) mmol/L Anion Gap 11.0 (6-13) BUN 43 H (6-20) mg/dL Creatinine 1.9 H (0.4-1.0) mg/dL Estimated GFR (MDRD) 25 L (>89) Glucose 135 H (70-100) mg/dL Calcium 8.3 L (8.5-10.3) mg/dL TSH 1.11 (0.34-5.60) uIU/mL ABX Reporting Has patient been on IV antibiotics over the past 48 hours?: Yes Assessment/Plan - Problem List (1) COPD exacerbation Impression: Conclusion/Plan: 01/18 pt feel better for her breathing. 96% sats on 2 lite of O2 continue solu-medro Duoneb Hx of longstanding COPD, hypoxia, SOB solu-medro Duoneb O2 as needed, RT treatment vital monitor (2) Pneumonia Conclusion/Plan: 01/18 WBC is normal now. continue Rocephin and Azith significant elevated WBC 18, CXR indicate infection or inflammation Rocephin and Azith IVF of NS daily lab monitor (3) Dehydration Conclusion/Plan: 01/18 creatinine 1.9 from 2.2 continue IVF of NS daily lab monitor pt report she feel dehydration, pt also had significant elevated creatinine Hydration with IVF of NS, precaution of fluid overload. daily lab monitor (4) Hyponatremia Conclusion/Plan: 01/18 resolved, 140 Na is 131, hypovolum and hyponatremia IVF of NS daily lab monitor (5) Hypothyroidism Conclusion/Plan: 01/18 TSH is normal stable, resume home meds check TSH
[2018-01-18] MEDS: SENNA 8.6 MG TABLET PO SCH (21:09)
[2018-01-18] MEDS: DULoxetine 30 MG CAPSULE PO SCH (21:09)
[2018-01-18] MEDS: ACETAMINOPHEN 325 MG TABLET PO PRN (21:09)
[2018-01-18] MEDS: LATANOPROST 0.005% OPHTH DROPS RIGHTEYE SCH (21:10)
[2018-01-18] MEDS: DOCUSATE SODIUM 250 MG CAPSULE PO SCH (21:10)
[2018-01-18] MEDS: MAGNESIUM OXIDE 400 MG TABLET PO SCH (21:10)
[2018-01-19] MEDS: SODIUM CHLORIDE 0.9% 1,000 ML IV SCH (02:39)
[2018-01-19] MEDS: SODIUM CHLORIDE FLUSH 0.9% 10 ML SYRINGE IVP SCH ×4 (02:39→16:34)
[2018-01-19 06:30] LABS: RED BLOOD COUNT 3.22 10^6/uL (4.20-5.40); WHITE BLOOD COUNT 13.5 x10^3/uL (4.8-10.8)
[2018-01-19 06:31] LABS: CALCIUM 8.1 mg/dL (8.5-10.3); CREATININE 1.8 mg/dL (0.4-1.0)
[2018-01-19 06:37] LABS: BASOPHILS % (AUTO) 0.1 %; HGB - HEMOGLOBIN 8.7 g/dL (12.0-16.0); LYMPHOCYTES # (AUTO) 0.9 10^3/uL (1.5-3.5); LYMPHOCYTES % (AUTO) 6.5 %; MEAN CORPUSCULAR HEMOGLOBIN 26.9 pg (27.0-31.0); MEAN CORPUSCULAR HGB CONC 32.6 g/dL (32.0-36.0); MEAN CORPUSCULAR VOLUME 82.7 fL (81.0-99.0); MEAN PLATELET VOLUME 6.3 fL (7.9-10.8); MONOCYTES # (AUTO) 0.8 10^3/uL (0.0-1.0); NEUTROPHILS # (AUTO) 11.8 10^3/uL (1.5-6.6); NEUTROPHILS % (AUTO) 87.4 %; PLT - PLATELET COUNT 381 10^3/uL (130-450); RED CELL DISTRIBUTION WIDTH 16.3 % (12.0-15.0)
[2018-01-19] MEDS: methylPREDNISolone SUCCINATE 125 MG/2 ML VIAL IVP SCH ×3 (06:58→21:01)
[2018-01-19] MEDS: PANTOPRAZOLE 40 MG TABLET PO SCH (07:05)
[2018-01-19] MEDS ORDERED: POTASSIUM CHLORIDE 20 MEQ TABLET PO ONE ×2 (07:43→13:24)
[2018-01-19] MEDS ORDERED: SODIUM CHLORIDE 0.9% 1,000 ML IV SCH ×2 (07:50→07:51)
[2018-01-19] MEDS: POLYETHYLENE GLYCOL 3350 17 GM PACKET PO SCH (09:18)
[2018-01-19] MEDS: DOCUSATE SODIUM 250 MG CAPSULE PO SCH (09:19)
[2018-01-19] MEDS: ASPIRIN EC 81 MG TABLET PO SCH (09:20)
[2018-01-19] MEDS: OXYBUTYNIN 5MG TABLET PO SCH (09:20)
[2018-01-19] MEDS: CHOLECALCIFEROL 1,000 UNIT TABLET PO SCH (09:20)
[2018-01-19] MEDS: LEVOTHYROXINE 100 MCG TABLET PO SCH (09:20)
[2018-01-19] MEDS: CYANOCOBALAMIN 500 MCG TABLET PO SCH (09:20)
[2018-01-19] MEDS: cefTRIAXone 2 GM in SODIUM CHLORIDE 0.9% MINIBAG 100 ML IV SCH (09:21)
[2018-01-19] MEDS: oxyCODONE 5 MG TABLET PO PRN ×2 (09:24→20:59)
[2018-01-19] MEDS: SENNA 8.6 MG TABLET PO SCH (09:27)
[2018-01-19] MEDS: MULTIVITAMIN TABLET PO SCH (09:28)
[2018-01-19] MEDS: SACCHAROMYCES BOULARDII 250 MG CAPSULE PO SCH ×2 (09:28→16:33)
[2018-01-19] MEDS: lamoTRIgine 100 MG TABLET PO SCH ×2 (09:31→20:59)
[2018-01-19] MEDS: ATORVASTATIN 40 MG TABLET PO SCH (09:33)
[2018-01-19] MEDS: ENOXAPARIN 30 MG/0.3 ML SYRINGE SUBQ SCH (09:34)
[2018-01-19] MEDS: TIMOLOL 0.5% OPHTH DROPS RIGHTEYE SCH ×2 (09:46→21:44)
[2018-01-19] MEDS: AZITHROMYCIN INJ 500 MG in SODIUM CHLORIDE 0.9% 250 ML IV SCH (10:44)
[2018-01-19] MEDS: guaiFENesin 600 MG TABLET PO SCH ×2 (11:14→20:59)
--- NOTE | 2018-01-19 12:39 | XRAY Report ---
Reason: shortness of breath Procedure Date: 01/19/2018 Accession Number: [id number] / [id number] Procedure: XR - Chest 1 View X-Ray CPT Code: 64914 FULL RESULT: EXAM: CHEST RADIOGRAPHY EXAM DATE: 01/19/2018 12:22 PM. CLINICAL HISTORY: Shortness of breath. COMPARISON: 01/17/2018 TECHNIQUE: 1 view. FINDINGS: Lungs/Pleura: Worsening bilateral infiltrates superimposed on a background of chronic increased interstitial markings findings are likely related to developing fluid overload/congestive failure ON the possibility of pneumonia cannot be excluded. Mediastinum: Within exam limitations, the cardiomediastinal contour is normal. Other: Hiatal hernia. IMPRESSION: Worsening chest x-ray likely developing fluid overload/congestive failure RADIA
[2018-01-19] MEDS: FUROSEMIDE 20 MG/2 ML VIAL IVP SCH (14:08)
--- NOTE | 2018-01-19 15:57 | PROVIDER PROGRESS NOTE ---
Subjective - Prog Note Date Prog Note Date: 01/19/18 - Subjective Pt reports feeling: No change Subjective: pt report she still feel some difficult to breath and feel some congestion. She denies CP, fever, chill. Current Medications - Current Medications Current Medications: Active Medications Acetaminophen (Tylenol) 650 mg PO Q4HR PRN PRN Reason: Pain 1 to 4 Last Admin: 01/18/18 21:09 Dose: 650 mg Aspirin (Ecotrin) 81 mg PO DAILY [facility] Last Admin: 01/19/18 09:20 Dose: 81 mg Atorvastatin Calcium (Lipitor) 40 mg PO DAILY [facility] Last Admin: 01/19/18 09:33 Dose: Not Given Bisacodyl (Dulcolax) 10 mg PO DAILY PRN PRN Reason: Constipation Last Admin: 01/17/18 21:04 Dose: 10 mg Cholecalciferol (Vitamin D3) 1,000 unit PO DAILY [facility] Last Admin: 01/19/18 09:20 Dose: 1,000 unit Cyanocobalamin (Vitamin B-12) 1,000 mcg PO DAILY [facility] Last Admin: 01/19/18 09:20 Dose: 1,000 mcg Docusate Sodium (Colace 250mg Capsule) 250 - 500 mg PO DAILY [facility] Last Admin: 01/19/18 09:19 Dose: 250 mg Duloxetine HCl (Cymbalta) 60 mg PO QPM [facility] Last Admin: 01/18/18 21:09 Dose: 60 mg Enoxaparin Sodium (Lovenox) 30 mg SUBQ DAILY [facility] Last Admin: 01/19/18 09:34 Dose: 30 mg Furosemide (Lasix Inj 20mg Vial) 20 mg IVP DAILY [facility] Last Admin: 01/19/18 14:08 Dose: 20 mg Guaifenesin (Mucinex) 600 mg PO BID [facility] Last Admin: 01/19/18 11:14 Dose: 600 mg Azithromycin 500 mg/ Sodium (Chloride) 250 mls @ 250 mls/hr IV DAILY [facility] Last Infusion: 01/19/18 12:06 Dose: Infused Ceftriaxone Sodium 2 gm/ (Sodium Chloride) 100 mls @ 200 mls/hr IV DAILY [facility] Last Infusion: 01/19/18 09:53 Dose: Infused Lamotrigine (Lamictal) 100 mg PO BID [facility] Last Admin: 01/19/18 09:31 Dose: 100 mg Latanoprost (Xalatan Ophth Drops) 1 drops RIGHTEYE QPM [facility] Last Admin: 01/18/18 21:10 Dose: 1 drops Levothyroxine Sodium (Synthroid) 100 mcg PO DAILY [facility] Last Admin: 01/19/18 09:20 Dose: 100 mcg Magnesium Oxide (Mag Ox) 400 mg PO QPM [facility] Last Admin: 01/18/18 21:10 Dose: 400 mg Methylprednisolone Sodium Succinate (Solu-Medrol (125mg Vial)) 60 mg IVP TID [facility] Last Admin: 01/19/18 13:22 Dose: 60 mg Multivitamins (Theragran) 1 tab PO DAILY [facility] Last Admin: 01/19/18 09:28 Dose: 1 tab Ondansetron HCl (Zofran Inj) 4 mg IVP Q6HR PRN PRN Reason: Nausea / Vomiting Ondansetron HCl (Zofran Odt) 4 mg TL Q6HR PRN PRN Reason: Nausea / Vomiting Oxybutynin Chloride (Ditropan) 5 mg PO DAILY [facility] Last Admin: 01/19/18 09:20 Dose: 5 mg Oxycodone HCl (Roxicodone) 5 mg PO Q4HR PRN PRN Reason: Pain 5 to 7 Last Admin: 01/19/18 09:24 Dose: 5 mg Pantoprazole Sodium (Protonix) 40 mg PO QDAC [facility] Last Admin: 01/19/18 07:05 Dose: 40 mg Melatonin 5 Mg 5 each PO DAILY PRN PRN Reason: Insomnia Polyethylene Glycol (Miralax) 17 gm PO DAILY [facility] Last Admin: 01/19/18 09:18 Dose: 17 gm Saccharomyces Boulardii (Florastor) 250 mg PO BIDWM [facility] Last Admin: 01/19/18 09:28 Dose: 250 mg Senna (Senokot) 8.6 - 17.2 mg PO DAILY [facility] Last Admin: 01/19/18 09:27 Dose: 17.2 mg Sodium Chloride (Normal Saline Flush 0.9%) 10 ml IVP PRN PRN PRN Reason: NEEDED PER PROVIDER ORDERS Last Admin: 01/18/18 21:11 Dose: 10 ml Sodium Chloride (Normal Saline Flush 0.9%) 10 ml IVP 0100,0900,1700 [facility] Last Admin: 01/19/18 14:08 Dose: 10 ml Timolol Maleate (Timoptic 0.5% Ophth Drops) 1 drops RIGHTEYE BID [facility] Last Admin: 01/19/18 09:46 Dose: 1 drops Levothyroxine Sodium [Synthroid] 100 mcg PO DAILY 09/09/13 Oxycodone HCl/Acetaminophen [Oxycodone-Acetaminophen 5-325] 1 each PO TID PRN Aspirin 81 mg PO DAILY 03/26/14 Cholecalciferol (Vitamin D3) [Vitamin D-3] 1,000 mg PO DAILY 06/21/14 DULoxetine [Cymbalta] 60 mg ORAL QPM 06/21/14 Latanoprost 0.005% Ophth Drops [Xalatan Ophth Drops] 1 drop RIGHTEYE QPM Albuterol Sulfate [Proair Hfa Inhaler] 2 puffs INH Q4H PRN 01/17/18 Atorvastatin Calcium 40 mg PO DAILY 01/17/18 Bisacodyl [Dulcolax] 10 mg PO DAILY PRN 01/17/18 Calcium Carbonate/Vitamin D3 [Calcium 600-Vit D3 400 Tablet] 1 tab PO BID Cyanocobalamin (Vitamin B-12) [Vitamin B-12 (1000 mcg sublingual)] 1,000 mcg SL DAILY 01/17/18 Fluticasone 110 Mcg [Flovent] 1 puffs IH BID 01/17/18 Fluticasone/Salmeterol [Advair 250-50 Diskus] 1 puffs IH BID 01/17/18 L.acid/L.casei/B.bif/B.filemon/Fos [Probiotic Blend Capsule] 1 cap PO DAILY Magnesium Oxide [Magnesium] 400 mg PO QPM 01/17/18 Melatonin 5 mg PO DAILY PRN 01/17/18 Multivitamin [Theragran] 1 tab PO DAILY 01/17/18 Omeprazole [Omeprazole] 20 mg PO BID 01/17/18 Oxybutynin Chloride 5 mg PO DAILY 01/17/18 Timolol 0.5% Ophth Drops [Timoptic 0.5% Ophth Drops] 1 drops RIGHTEYE BID Ubidecarenone [Co Q-10] 100 mg PO DAILY 01/17/18 lamoTRIgine [LaMICtal] 100 mg PO BID 01/17/18 Objective - Vital Signs/Intake & Output Reviewed Vital Signs: Yes Vital Signs: Vital Signs x48h Temp Pulse Pulse Resp Resp Resp BP 01/19/18 15:42 36.7 C 77 24 01/19/18 14:35 84 18 18 150/60 H 01/19/18 10:28 36.9 C 01/19/18 08:20 80 16 BP Pulse Ox Pulse Ox Pulse Ox 01/19/18 15:42 156/82 H 94 01/19/18 14:35 70 L 90 L 01/19/18 10:28 01/19/18 08:20 149/57 H 92 Intake & Output: Intake & Output 01/16/18 01/17/18 01/18/18 01/19/18 23:59 23:59 23:59 23:59 Intake Total 2049 3958.333 2860 Balance 2049 3958.333 2860 - Objective General Appearance: positive: No acute distress, Alert. negative: Lethargic Eyes Bilateral: positive: Normal inspection, PERRL, No lid inflammation, Conjunctivae nml ENT: positive: ENT inspection nml, Pharynx nml, No signs of dehydration. negative: Purulent nasal drainage, Pharyngeal erythema, Oral lesions Neck: positive: Nml inspection, Thyroid nml, No JVD, Trachea midline. negative : Thyromegaly, Lymphadenopathy (R), Lymphadenopathy (L), Stiff neck, Swelling/ bruising, Tracheal deviation Respiratory: positive: Chest non-tender, No respiratory distress, Rhonchi. negative: Wheezes, Rales Cardiovascular: positive: Regular rate & rhythm, No murmur, No gallop. negative : Irregularly irregular, Extrasystoles, Tachycardia, Bradycardia, JVD present, Systolic murmur, Diastolic murmur Peripheral Pulses: 2+ Radial (R), 2+ Radial (L), 2+ Dorsalis pedis (R), 2+ Dorsalis pedis (L) Abdomen: positive: Non-tender, No organomegaly, Nml bowel sounds, No distention. negative: Tenderness, Guarding, Rebound Back: positive: Nml inspection. negative: CVA tenderness (R), CVA tenderness (L ) Skin: positive: Color nml, No rash, Warm, Dry. negative: Cyanosis, Diaphoresis , Pallor Extremities: positive: Non-tender, Full ROM, Nml appearance. negative: Calf tenderness, Joint swelling, Bang's sign/cords Neurologic/Psychiatric: positive: Oriented x3, Motor nml, Sensation nml, Mood/ affect nml. negative: Weakness, Sensory loss, Facial droop, Slurred/abnml speech, Depressed mood/affect - Lab Results Fish Bones: 01/19/18 05:52 01/19/18 05:52 Other Labs: Lab Results x24hrs 01/19/18 01/19/18 Range/Units 05:52 05:52 WBC 13.5 H (4.8-10.8) x10^3/uL RBC 3.22 L (4.20-5.40) 10^6/uL Hgb 8.7 L (12.0-16.0) g/dL Hct 26.6 L (37.0-47.0) % MCV 82.7 (81.0-99.0) fL MCH 26.9 L (27.0-31.0) pg MCHC 32.6 (32.0-36.0) g/dL RDW 16.3 H (12.0-15.0) % Plt Count 381 (130-450) 10^3/uL MPV 6.3 L (7.9-10.8) fL Neut # (Auto) 11.8 H (1.5-6.6) 10^3/uL Lymph # (Auto) 0.9 L (1.5-3.5) 10^3/uL Freestone # (Auto) 0.8 (0.0-1.0) 10^3/uL Eos # (Auto) 0.0 (0.0-0.7) 10^3/uL Baso # (Auto) 0.0 (0.0-0.1) 10^3/uL Absolute Nucleated RBC 0.00 x10^3/uL Nucleated RBC % 0.0 /100WBC Sodium 141 (135-145) mmol/L Potassium 3.2 L (3.5-5.0) mmol/L Chloride 102 (101-111) mmol/L Carbon Dioxide 29 (21-32) mmol/L Anion Gap 10.0 (6-13) BUN 37 H (6-20) mg/dL Creatinine 1.8 H (0.4-1.0) mg/dL Estimated GFR (MDRD) 27 L (>89) Glucose 119 H (70-100) mg/dL Calcium 8.1 L (8.5-10.3) mg/dL ABX Reporting Has patient been on IV antibiotics over the past 48 hours?: Yes Assessment/Plan - Problem List (1) COPD exacerbation Impression: Conclusion/Plan: 01/19 pt still feel some SOB, CXR reveals pulmonary congestion start Lasix IV 20mg daily continue solu-metrol Duoneb 01/18 pt feel better for her breathing. 96% sats on 2 lite of O2 continue solu-medro Duoneb Hx of longstanding COPD, hypoxia, SOB solu-medro Duoneb O2 as needed, RT treatment vital monitor (2) Pneumonia Conclusion/Plan: 01/19 pt's WBC is going up, may due to steroid continue antibiotics 01/18 WBC is normal now. continue Rocephin and Azith significant elevated WBC 18, CXR indicate infection or inflammation Rocephin and Azith IVF of NS daily lab monitor (3) Dehydration Conclusion/Plan: continue improved renal function 01/18 creatinine 1.9 from 2.2 continue IVF of NS daily lab monitor pt report she feel dehydration, pt also had significant elevated creatinine Hydration with IVF of NS, precaution of fluid overload. daily lab monitor (4) Hyponatremia Conclusion/Plan: 01/18 resolved, 140 Na is 131, hypovolum and hyponatremia IVF of NS daily lab monitor (5) Hypothyroidism Conclusion/Plan: 01/18 TSH is normal stable, resume home meds check TSH (6) pulmonary congestion CXR reveals pulmonary congestion start Lasix IV 20mg daily daily lab monitor,
[2018-01-19] MEDS: DULoxetine 30 MG CAPSULE PO SCH (20:58)
[2018-01-19] MEDS: ACETAMINOPHEN 325 MG TABLET PO PRN (20:59)
[2018-01-19] MEDS: MAGNESIUM OXIDE 400 MG TABLET PO SCH (20:59)
[2018-01-19] MEDS: SODIUM CHLORIDE FLUSH 0.9% 10 ML SYRINGE IVP PRN (21:02)
[2018-01-19] MEDS: LATANOPROST 0.005% OPHTH DROPS RIGHTEYE SCH (21:44)
[2018-01-20] MEDS: SODIUM CHLORIDE FLUSH 0.9% 10 ML SYRINGE IVP SCH ×3 (02:37→13:50)
[2018-01-20 05:54] LABS: HGB - HEMOGLOBIN 9.5 g/dL (12.0-16.0); LYMPHOCYTES # (AUTO) 1.2 10^3/uL (1.5-3.5); LYMPHOCYTES % (AUTO) 6.8 %; MEAN CORPUSCULAR HEMOGLOBIN 26.9 pg (27.0-31.0); MEAN CORPUSCULAR HGB CONC 32.5 g/dL (32.0-36.0); MEAN CORPUSCULAR VOLUME 82.6 fL (81.0-99.0); MEAN PLATELET VOLUME 6.3 fL (7.9-10.8); MONOCYTES # (AUTO) 1.7 10^3/uL (0.0-1.0); MONOCYTES % (AUTO) 9.2 %; NEUTROPHILS # (AUTO) 15.5 10^3/uL (1.5-6.6); PLT - PLATELET COUNT 407 10^3/uL (130-450); RED BLOOD COUNT 3.52 10^6/uL (4.20-5.40); RED CELL DISTRIBUTION WIDTH 16.6 % (12.0-15.0); WHITE BLOOD COUNT 18.4 x10^3/uL (4.8-10.8)
[2018-01-20 06:05] LABS: CALCIUM 8.6 mg/dL (8.5-10.3); CREATININE 1.5 mg/dL (0.4-1.0)
[2018-01-20] MEDS: PANTOPRAZOLE 40 MG TABLET PO SCH (06:27)
[2018-01-20] MEDS: methylPREDNISolone SUCCINATE 125 MG/2 ML VIAL IVP SCH ×2 (06:28→13:49)
[2018-01-20] MEDS: SODIUM CHLORIDE FLUSH 0.9% 10 ML SYRINGE IVP PRN (06:32)
[2018-01-20] MEDS ORDERED: ALBUTEROL NEB 2.5 MG/3 ML INH PRN (07:48)
[2018-01-20] MEDS: IPRATROPIUM/ALBUTEROL 3 ML NEB INH PRN ×2 (08:25→11:58)
[2018-01-20] MEDS ORDERED: CEFEPIME 2 GM in SODIUM CHLORIDE 0.9% MINIBAG 100 ML IV SCH (09:00)
[2018-01-20] MEDS ORDERED: FLUCONAZOLE 100 MG TABLET PO SCH (09:00)
[2018-01-20] MEDS ORDERED: MORPHINE 2 MG/ML CARPUJECT IVP PRN (09:12)
[2018-01-20] MEDS: POLYETHYLENE GLYCOL 3350 17 GM PACKET PO SCH (09:19)
[2018-01-20] MEDS: OXYBUTYNIN 5MG TABLET PO SCH (09:20)
[2018-01-20] MEDS: CYANOCOBALAMIN 500 MCG TABLET PO SCH (09:20)
[2018-01-20] MEDS: ATORVASTATIN 40 MG TABLET PO SCH (09:21)
[2018-01-20] MEDS: DOCUSATE SODIUM 250 MG CAPSULE PO SCH (09:21)
[2018-01-20] MEDS: guaiFENesin 600 MG TABLET PO SCH (09:22)
[2018-01-20] MEDS: CHOLECALCIFEROL 1,000 UNIT TABLET PO SCH (09:22)
[2018-01-20] MEDS: ASPIRIN EC 81 MG TABLET PO SCH (09:22)
[2018-01-20] MEDS: oxyCODONE 5 MG TABLET PO PRN (09:23)
[2018-01-20] MEDS: LEVOTHYROXINE 100 MCG TABLET PO SCH (09:23)
[2018-01-20] MEDS: lamoTRIgine 100 MG TABLET PO SCH (09:23)
[2018-01-20] MEDS: SENNA 8.6 MG TABLET PO SCH (09:23)
[2018-01-20] MEDS: SACCHAROMYCES BOULARDII 250 MG CAPSULE PO SCH (09:24)
[2018-01-20] MEDS: MULTIVITAMIN TABLET PO SCH (09:24)
[2018-01-20] MEDS: FUROSEMIDE 20 MG/2 ML VIAL IVP SCH (09:24)
[2018-01-20 09:28] VITALS: BP 162/88
[2018-01-20] MEDS ORDERED: VANCOMYCIN INJ 1 GM in SODIUM CHLORIDE 0.9% 250 ML IV SCH (10:00)
[2018-01-20] MEDS: ENOXAPARIN 30 MG/0.3 ML SYRINGE SUBQ SCH (10:09)
[2018-01-20] MEDS: TIMOLOL 0.5% OPHTH DROPS RIGHTEYE SCH (10:11)
[2018-01-20 10:16] LABS: ABG PCO2 38 mmHg (34-45); ABG PH 7.47 (7.35-7.45); ABG PO2 83 mmHg (80-100)
[2018-01-20 10:17] LABS: ABG BASE EXCESS 3.5 mmol/L (-2.0-3.0); ABG HCO3 27.2 mmol/L (22.0-26.0); ABG OXYGEN SATURATION 96 % (94-98); ABG TCO2 28.4 MMOL/L (21.0-29.0); ALLEN TEST POSITIVE
--- NOTE | 2018-01-20 10:24 | CT Report ---
Reason: SOB Procedure Date: 01/20/2018 Accession Number: [id number] / [id number] Procedure: CT - Chest W/O CPT Code: FULL RESULT: EXAM: CT CHEST EXAM DATE: 01/20/2018 09:44 AM. CLINICAL HISTORY: SOB. COMPARISONS: 04/14/2017. TECHNIQUE: Routine helical CT imaging was performed through the chest. IV contrast: None. Reconstructions: Coronal and sagittal. In accordance with CT protocol optimization, one or more of the following dose reduction techniques were utilized for this exam: automated exposure control, adjustment of mA and/or KV based on patient size, or use of iterative reconstructive technique. FINDINGS: Lungs/Pleura: Multiple peripheral blebs with associated traction bronchiectasis, consistent with pulmonary fibrosis. Superimposed bilateral groundglass opacities. No effusion or pneumothorax. Mediastinum: Precarinal lymph node measures 1.1 cm, likely reactive. Moderate atherosclerotic disease of the thoracic aorta. Coronary artery calcifications. Bones: Degenerative changes of the thoracic spine. Visualized Abdomen: Unremarkable. Other: None. IMPRESSION: Pulmonary fibrosis with superimposed bilateral groundglass opacities. Differential includes acute exacerbation of interstitial lung disease, pulmonary edema/CHF, and infection. RADIA
--- NOTE | 2018-01-20 15:30 | DISCHARGE SUMMARY ---
Discharge Summary Discharge Date: 01/20/18 Discharging Provider: JAIN Primary Care Provider: Leigh Ann Denton Condition at Discharge: Poor Discharge Disposition: 02 Transfer Acute Care Hosp Discharge Facility Name: [facility] - DIAGNOSES Admission Diagnoses: (1) COPD exacerbation (2) Pneumonia (3) Dehydration (4) Hyponatremia (5) Hypothyroidism Discharge Diagnoses with Status of Each Condition: (1) hemoptysis pt had twice hemoptysis, each had about 10 ml blood. pt had elevated D-dimer, but pt also had CKD at GFR 33, Our hospital did not have V/Q scan at the weekend. transfer to [facility] for advance care. (2)hypoxia pt's sats was drop to 74% when pt is walking. pt present SOB when she was in the rest. 89-91% sats on 11 liter of O2. pt has been treated with pneumonia and COPD exacerbation. pt was transferred to [facility] for advance care (3) COPD exacerbation pt present SOB, pt was treated with solu-metrol, Duoneb PRN pt was transferred to [facility] for advance care (4) Pneumonia sputum culture reveals yeast and staph aureas. pt was prescribe anti-fungus and cefepime and vancomycin, sputum sensitivity study is pending. pt was transferred to [facility] for advance care (5) Dehydration improved renal function (6) Hyponatremia resolved (7) Hypothyroidism stable (8) pulmonary congestion pt developed pulmonary congestion in CXR, and SOB IV lasix, will continue to be managed by [facility] (9) pulmonary fibrosis CT reveals pulmonary fibrosis, chronic, will continue to be managed by [facility] (10) elevated D-dimer D-dimer is over 1000, transferred to [facility] for V/Q scan to r/o PE - HPI History of Present Illness: Ms. Huynh is 82-year-old female with a PMH significance for recurrent pneumonia, longstanding COPD, glaucoma, depression/anxiety, chronic back pain, hypothyroidism who present ER for complaint of difficult breath. Pt report his doctor asked her present ER because of "a abnormal number". Pt report she became more and more difficult to breath otherwise she feels ok. She state she become more fatigue and shortness of breath when she walk a few step with her walkers. She report she had multiple times of pneumonia in the past. She used to be cigarette smoker for quit long time. She denies fever, chill, chest pain , headache, abdominal pain. - ALLERGIES Allergies/Adverse Reactions: Allergies Allergy/AdvReac Type Severity Reaction Status Date / Time oxaprozin [From Daypro] Allergy Mild Nausea Verified 01/17/18 10:53 tetracycline [Tetracycline] Allergy Mild Rash Verified 01/17/18 10:53 venom-honey bee Allergy Unknown Verified 01/17/18 10:53 [bee venom (honey bee)] bupropion HCl * AdvReac Unknown Verified 01/17/18 10:53 [From Wellbutrin] - MEDICATIONS Home Medications: Ambulatory Orders Medication Instructions Recorded Confirmed Levothyroxine Sodium [Synthroid] 100 mcg PO DAILY 09/09/13 01/17/18 Oxycodone HCl/Acetaminophen 1 each PO TID PRN 09/09/13 01/17/18 [Oxycodone-Acetaminophen 5-325] Aspirin 81 mg PO DAILY 03/26/14 01/17/18 Cholecalciferol (Vitamin D3) 1,000 mg PO DAILY 06/21/14 01/17/18 [Vitamin D-3] DULoxetine [Cymbalta] 60 mg ORAL QPM 06/21/14 01/17/18 Latanoprost 0.005% Ophth Drops 1 drop RIGHTEYE QPM 06/21/14 01/17/18 [Xalatan Ophth Drops] Albuterol Sulfate [Proair Hfa 2 puffs INH Q4H PRN 01/17/18 01/17/18 Inhaler] Atorvastatin Calcium 40 mg PO DAILY 01/17/18 01/17/18 Bisacodyl [Dulcolax] 10 mg PO DAILY PRN 01/17/18 01/17/18 Calcium Carbonate/Vitamin D3 1 tab PO BID 01/17/18 01/17/18 [Calcium 600-Vit D3 400 Tablet] Cyanocobalamin (Vitamin B-12) 1,000 mcg SL DAILY 01/17/18 01/17/18 [Vitamin B-12 (1000 mcg sublingual)] Fluticasone 110 Mcg [Flovent] 1 puffs IH BID 01/17/18 01/17/18 Fluticasone/Salmeterol [Advair 1 puffs IH BID 01/17/18 01/17/18 250-50 Diskus] L.acid/L.casei/B.bif/B.filemon/Fos 1 cap PO DAILY 01/17/18 01/17/18 [Probiotic Blend Capsule] Magnesium Oxide [Magnesium] 400 mg PO QPM 01/17/18 01/17/18 Melatonin 5 mg PO DAILY PRN 01/17/18 01/17/18 Multivitamin [Theragran] 1 tab PO DAILY 01/17/18 01/17/18 Omeprazole [Omeprazole] 20 mg PO BID 01/17/18 01/17/18 Oxybutynin Chloride 5 mg PO DAILY 01/17/18 01/17/18 Timolol 0.5% Ophth Drops [Timoptic 1 drops RIGHTEYE BID 01/17/18 01/17/18 0.5% Ophth Drops] Ubidecarenone [Co Q-10] 100 mg PO DAILY 01/17/18 01/17/18 lamoTRIgine [LaMICtal] 100 mg PO BID 01/17/18 01/17/18 - PHYSICAL EXAM AT DISCHARGE General Appearance: positive: No acute distress, Alert. negative: Lethargic Eyes Bilateral: positive: Normal inspection, PERRL, No lid inflammation, Conjunctivae nml ENT: positive: ENT inspection nml, Pharynx nml, No signs of dehydration. negative: Purulent nasal drainage, Pharyngeal erythema, Oral lesions Neck: positive: Nml inspection, Thyroid nml, No JVD, Trachea midline. negative : Thyromegaly, Lymphadenopathy (R), Lymphadenopathy (L), Stiff neck, Swelling/ bruising, Tracheal deviation Respiratory: positive: Chest non-tender, Wheezes, Rhonchi Cardiovascular: positive: Regular rate & rhythm, No murmur. negative: Irregularly irregular, Extrasystoles, Tachycardia, Bradycardia, JVD present, Systolic murmur, Diastolic murmur Peripheral Pulses: positive: 2+ Abdomen: positive: Non-tender, No organomegaly, Nml bowel sounds, No distention. negative: Tenderness, Guarding, Rebound Back: positive: Nml inspection. negative: CVA tenderness (R), CVA tenderness (L ) Skin: positive: Color nml, No rash, Warm, Dry. negative: Cyanosis, Diaphoresis , Pallor Extremities: positive: Non-tender, Full ROM, Nml appearance. negative: Calf tenderness, Joint swelling, Bang's sign/cords Neurologic/Psychiatric: positive: Oriented x3, Motor nml, Sensation nml, Mood/ affect nml. negative: Weakness, Sensory loss, Facial droop, Slurred/abnml speech, Depressed mood/affect - LABS Result Diagrams: 01/20/18 05:35 01/20/18 05:35 - FOLLOW UP Follow Up: transferred to [facility] for advance care - TIME SPENT Time Spent in Discharge (Minutes): 55
== END 2018-01-20 15:03 | disposition short-term general hospital (02) | DRG 190 ==
LOC: ED 10:44 → MS2 13:30
PROVIDERS: ADMIT Specialist; ATTEND Nurse Practitioner Gerontology
DX: J18.9 Pneumonia, unspecified organism (principal); J44.1 Chronic obstructive pulmonary disease with (acute) exacerbation; J15.211 Pneumonia due to Methicillin susceptible Staphylococcus aureus; R09.02 Hypoxemia; N17.9 Acute kidney failure, unspecified; B37.1 Pulmonary candidiasis; J96.21 Acute and chronic respiratory failure with hypoxia; E87.1 Hypo-osmolality and hyponatremia; R04.2 Hemoptysis; E86.0 Dehydration; E86.1 Hypovolemia; J44.0 Chronic obstructive pulmonary disease with (acute) lower respiratory infection; E03.9 Hypothyroidism, unspecified; N18.9 Chronic kidney disease, unspecified; J84.10 Pulmonary fibrosis, unspecified; F32.9 Major depressive disorder, single episode, unspecified; F41.9 Anxiety disorder, unspecified; M54.9 Dorsalgia, unspecified; G89.29 Other chronic pain; H40.9 Unspecified glaucoma; Z66 Do not resuscitate; Z85.828 Personal history of other malignant neoplasm of skin; Z79.891 Long term (current) use of opiate analgesic; Z87.891 Personal history of nicotine dependence; Z79.82 Long term (current) use of aspirin; Z79.51 Long term (current) use of inhaled steroids
CPT/HCPCS: 36415; 36600; 71045; 71250; 80048; 80053; 80175; 81001; 81003; 81599; 82803; 83690; 84443; 85025; 85379; 87040; 87070; 87086; 87205; 93306; 94640; 96360; 99284